=== PATIENT | male | born 1945 | race Caucasian/White ===

== ENCOUNTER 2016-12-06 06:03 | Day surgery (SDC) | payer MEDICARE ==
[2016-12-06 06:30] VITALS: BMI 22.1
[2016-12-06] MEDS ORDERED: Lactated Ringer's 1,000 ML IV ONE (08:01)
[2016-12-06] MEDS ORDERED: Lidocaine Hydrochloride 5 ML INJ ONE (08:05)
[2016-12-06] MEDS ORDERED: Propofol 10 mg/ml Inj (20 ML) ONE (08:05)
[2016-12-06] MEDS ORDERED: Atropine Sulfate 0.4 mg/ml (0.8mg/2ml) Syringe IV ONE (08:07)
[2016-12-06] MEDS ORDERED: Lidocaine 4% (Laryng-O-Jet) Kit MM ONE (08:10)
[2016-12-06 08:15] VITALS: O2SAT 100
[2016-12-06] MEDS ORDERED: Lactated Ringer's 500 ML IV SCH (08:30)
[2016-12-06 09:01] VITALS: TEMP 97
[2016-12-06 09:26] LABS: CHLORIDE 103 mmol/L (98-107); POTASSIUM 4.3 mmol/L (3.6-5.2); SODIUM 135 mmol/L (132-148)
[2016-12-06 09:29] LABS: BLOOD UREA NITROGEN 22 mg/dL (9-20); CALCIUM 8.5 mg/dl (8.6-10.4); CARBON DIOXIDE 25 mmol/L (22-30); GFR AFRICAN-AMERICAN > 60; GLUCOSE,RANDOM 76 mg/dL (75-110)
[2016-12-06 10:03] VITALS: BP 118/56; PULSE 50; RESP 15
== END 2016-12-06 09:49 | disposition home or self-care (01) ==
LOC: C.ENDO 06:03
PROVIDERS: ATTEND Internal Medicine Gastroenterology
DX: C15.4 Malignant neoplasm of middle third of esophagus (principal); K29.50 Unspecified chronic gastritis without bleeding; I10 Essential (primary) hypertension; E78.5 Hyperlipidemia, unspecified

== ENCOUNTER 2017-01-11 07:06 | Day surgery (SDC) | payer MEDICARE ==
[2017-01-02 10:36] VITALS: BMI 21.3
[2017-01-11] MEDS ORDERED: Bupivacaine HCl 0.25% PF (10 ml) Inj ONE ×2 (10:01)
[2017-01-11] MEDS ORDERED: HEPARIN-NS 5,000 UNITS/500 ML 5,000 UNIT/500 ML BAG IV ONE (10:19)
[2017-01-11] MEDS ORDERED: Lactated Ringer's 1,000 ML IV ONE ×2 (10:34)
[2017-01-11] MEDS: ceFAZolin IV 1 gm in Dextrose 0 GM/0 ML BAG IVPB ONE ×2 (10:35→11:10)
[2017-01-11] MEDS ORDERED: ceFAZolin IV 2 gm in Dextrose 2 GM/50 ML BAG IVPB ONE (10:57)
[2017-01-11] MEDS ORDERED: Propofol 10 mg/ml Inj (20 ML) ONE (11:03)
[2017-01-11] MEDS ORDERED: Midazolam 2 MG/2 ML VIAL ONE (11:03)
[2017-01-11] MEDS ORDERED: Succinylcholine Chloride 20 mg/ml Syr (5 ml) IV ONE (11:12)
[2017-01-11] MEDS: Bupivacaine-Epi 0.25%-1:200,000 PF Inj ONE ×2 (11:22→11:46)
[2017-01-11] MEDS: Lidocaine 1% Inj (20ml) ONE ×2 (11:23→11:46)
[2017-01-11] MEDS: Sodium Chloride 0.9% 20 ML IV ONE ×2 (11:43→12:22)
[2017-01-11] MEDS ORDERED: HYDROmorphone 0.5 mg/0.5 ml ISec IVP PRN (12:13)
[2017-01-11] MEDS ORDERED: Oxycodone/Acetaminophen 5/325 mg Tab PO PRN (12:47)
--- NOTE | 2017-01-11 12:53 | PCM.SURG1 ---
Surgeon's Initial Post Op Note - Surgeon's Notes Surgeon: Dr. Echols Development Administrator: Shefali Philippe, PGY1 Type of Anesthesia: General IV Pre-Operative Diagnosis: esophageal cancer needing portacath insertion Operative Findings: same Post-Operative Diagnosis: same Operation Performed: portacath insertion at Right IJ Specimen/Specimens Removed: none Estimated Blood Loss: EBL {In ML}: 10 Blood Products Given: N/A Drains Used: No Drains Post-Op Condition: Fair Date of Surgery/Procedure: 01/11/17 Time of Surgery/Procedure: 11:35
[2017-01-11] MEDS ORDERED: Oxycodone/Acetaminophen 5/325 mg Tab PEG PRN (13:27)
[2017-01-11] MEDS ORDERED: Lactated Ringer's 500 ML IV ONE (13:45)
--- NOTE | 2017-01-11 13:57 | RAD ---
PROCEDURE: CHEST RADIOGRAPH, 1 VIEW HISTORY: portacath insertion COMPARISON: Chest from right rib series 5216. FINDINGS: LUNGS: Right-sided life port catheter is in place with tip of the catheter terminating at the distal superior vena cava. Fibrotic changes are again seen the right suprahilar lung versus elevated minor fissure. No alveolitis. PLEURA: No pneumothorax or pleural fluid seen. CARDIOVASCULAR: Normal. OSSEOUS STRUCTURES: No significant abnormalities. VISUALIZED UPPER ABDOMEN: Normal. OTHER FINDINGS: None. IMPRESSION: Status post right life port catheter insertion. No pneumothorax identified. No infiltrate bilaterally.
[2017-01-11 14:27] VITALS: BP 107/56; PULSE 56; RESP 18; TEMP 97; O2SAT 97
--- NOTE | 2017-01-11 23:39 | OP ---
PROCEDURE DATE: 01/11/2017 PREOPERATIVE DIAGNOSIS: Esophageal cancer. POSTOPERATIVE DIAGNOSIS: Esophageal cancer. PROCEDURE DONE: 1. Right IJ double-lumen Port-A-Cath insertion. 2. Intraoperative fluoroscopy. 3. Ultrasound-guided venous access. SURGEON: Jeffrey Echols MD RACQUET MAKER: Shefali, PGY-1, resident. TYPE OF ANESTHESIA: General endotracheal tube anesthesia. ESTIMATED BLOOD LOSS: Around 10 mL. DRAINS: None. PATHOLOGY: None. COMPLICATIONS: None. INTRAOPERATIVE FINDINGS: The patient had patent right IJ and on intraoperative steps. DESCRIPTION OF PROCEDURE: This 71-year-old male who was diagnosed with esophageal cancer and the patient needed a Port-A-Cath insertion. The patient was consented for Port-A-Cath insertion, brought to the OR, placed on an operating table. After induction of anesthesia, the patient was placed in a beach chair position and neck was prepped and draped in usual sterile fashion, and under ultrasound guidance, right IJ venous access was done. The guidewire was placed and the right infraclavicular pouch was created. The catheter was passed through the dilator sheath and the catheter was connected to the double-lumen port. Port was secured to the floor of the pouch and the wound was closed in 2 layer. The port was accessed intraoperatively and it was working fine. The intraoperative fluoroscopy confirmation was done. The wound was dressed in sterile method and dry sterile dressing was applied. The patient tolerated the procedure well. The patient was extubated from the OR, sent to the postanesthesia care unit in stable condition. Jeffrey Echols MD
--- NOTE | 2017-01-12 07:55 | RAD ---
PROCEDURE: Intraoperative Fluoroscopy. HISTORY: Esophageal cancer FINDINGS: Fluoroscopic assistance was provided for right sided Port-A-Cath placement.. Please refer to the operative report from
== END 2017-01-11 14:48 | disposition home or self-care (01) ==
LOC: C.SDS 07:06
PROVIDERS: ATTEND Surgery Surgical Critical Care
DX: C15.9 Malignant neoplasm of esophagus, unspecified (principal)
CPT/HCPCS: 36561; 71010; 77001; J2250; J2704; J3010; J7120

== ENCOUNTER 2017-03-12 14:07 | Inpatient (IN) | payer MEDICARE ==
[2017-03-12 14:30] VITALS: BMI 19.2
[2017-03-12] MEDS ORDERED: Sodium Chloride 0.9% 500 ML IV ONE ×3 (15:34→18:59)
[2017-03-12 15:58] LABS: BASO # 0.1 K/uL (0.0-0.2); BASO % 1.2 % (0.0-2.0); EOS % 0.5 % (0.0-4.0); HEMOGLOBIN 11.1 g/dL (12.0-18.0); LYMPH # 0.6 K/uL (1.0-4.3); LYMPH % 9.6 % (20.0-40.0); MEAN CELL VOLUME 86.8 fL (80.0-94.0); MEAN CORPUSCULAR HEMOGLOBIN 29.2 pg (27.0-31.0); MEAN CORPUSCULAR HGB CONC 33.6 g/dL (33.0-37.0); MEAN PLATELET VOLUME 7.9 fL (7.2-11.7); MONO # 0.6 K/uL (0.0-0.8); MONO % 8.5 % (0.0-10.0); NEUT # 5.3 K/uL (1.8-7.0); NEUT % 80.2 % (50.0-75.0); PLATELET COUNT 331 K/uL (130-400); RED CELL DISTRIBUTION WIDTH 15.3 % (11.5-14.5); WHITE BLOOD COUNT 6.6 K/uL (4.8-10.8)
--- NOTE | 2017-03-12 16:00 | C.PDOC ---
History Of Present Illness 71 year old male with PMHx of esophageal cancer is sent to the ED by his PMD Dr. Olmos for evaluation of weakness. Patient's daughter reports patient had radiation and chemotherapy for his esophageal cancer, she started radiation on December and the last session was 2 weeks ago when the symptoms started. Patient is currently c/o severe weakness along with nausea, vomit, diarrhea patient has trouble getting up because he gets dizzy and his currently using a cane to walk. Patient denies blood in the stool, dysuria, hematuria, headache, numbness, abdominal pain, CP, SOB. Time Seen by Provider: 03/12/17 15:06 Chief Complaint (Nursing): Weakness/Neurological Deficit History Per: Patient History/Exam Limitations: no limitations Onset/Duration Of Symptoms: Days Current Symptoms Are (Timing): Still Present Associated Symptoms Preceding Syncopal Episode: No Predromal Symptoms (Sudden Onset) Seizure Or Post-ictal Symptoms: None Fall Associated With With Symptoms: No Severity: Mild Recent travel outside of the [place]: No Additional History Per: Patient Past Medical History Reviewed: Historical Data, Nursing Documentation, Vital Signs Vital Signs: Last Vital Signs Temp 97.9 F 03/12/17 21:40 Pulse 59 L 03/12/17 21:48 Resp 16 03/12/17 21:40 BP 98/52 L 03/12/17 21:40 Pulse Ox 100 03/12/17 21:40 - Medical History PMH: HTN Denies: Chronic Kidney Disease Other PMH: esophageal cancer Surgical History: Endoscopy Family History: States: Unknown Family Hx - Social History Hx Alcohol Use: No Hx Substance Use: No - Immunization History Hx Tetanus Toxoid Vaccination: No Hx Influenza Vaccination: No Hx Pneumococcal Vaccination: No Review Of Systems Constitutional: Positive for: Weakness. Negative for: Fever, Chills Cardiovascular: Negative for: Chest Pain, Palpitations Respiratory: Negative for: Cough, Shortness of Breath Gastrointestinal: Positive for: Vomiting, Diarrhea. Negative for: Nausea, Abdominal Pain Genitourinary: Negative for: Dysuria, Hematuria Skin: Negative for: Rash Neurological: Positive for: Weakness, Dizziness. Negative for: Numbness, Headache Physical Exam - Physical Exam Appears: Non-toxic, No Acute Distress Skin: Normal Color, Warm, Dry Head: Atraumatic, Normacephalic Eye(s): bilateral: Normal Inspection Nose: No Discharge, No Deformity Oral Mucosa: Moist Neck: Normal ROM, Supple Chest: Symmetrical Cardiovascular: Rhythm Regular, No Murmur Respiratory: Normal Breath Sounds, No Rales, No Rhonchi, No Wheezing Gastrointestinal/Abdominal: Soft, No Tenderness, No Guarding, No Rebound, Other (G tube in place, appears clean, area around it no erythema ) Rectal: Heme Positive, Maroon Stool, Blood Streaked Stool, No Hemorrhoids, Mass Extremity: Normal ROM, No Pedal Edema, No Calf Tenderness, No Deformity, No Swelling Neurological/Psych: Oriented x3, Normal Speech, Normal Cognition Gait: Steady ED Course And Treatment - Laboratory Results Result Diagrams: 03/12/17 15:54 03/12/17 15:54 ECG: Interpreted By Me, Viewed By Me ECG Rhythm: Sinus Rhythm ECG Interpretation: Normal Interpretation Of ECG: Normal intervals, normal axis, no ST or T wave abnormalities Rate From EC O2 Sat by Pulse Oximetry: 99 (On RA) Pulse Ox Interpretation: Normal - Radiology CXR: Viewed By Me, Read By Radiologist CXR Interpretation: Yes: Other (No stable position of right Port-A-Cath. Fibrotic changes in the right upper lobe. No active pulmonary disease) Medical Decision Making Medical Decision Making: Impression : generalized weakness Plan: * EKG * Labs * CXR * Protonix 40 mg IVP * IV fluids * Blood culture * Urine culture * UA Spoke with Hospitalist Dr. Das for admission, patient will be admitted to telemetry for weakness and hemoccult positive stool. Disposition Discussed With : Chata Das Doctor Will See Patient In The: Hospital Counseled Patient/Family Regarding: Studies Performed, Diagnosis - Disposition Disposition: HOSPITALIZED Disposition Time: 16:55 Condition: FAIR - Clinical Impression Clinical Impression: Weakness, Guaiac + stool - Scribe Statement The provider has reviewed the documentation as recorded by the Scribe Corey Reeves All medical record entries made by the Scribe were at my direction and personally dictated by me. I have reviewed the chart and agree that the record accurately reflects my personal performance of the history, physical exam, medical decision making, and the department course for this patient. I have also personally directed, reviewed, and agree with the discharge instructions and disposition.
--- NOTE | 2017-03-12 16:04 | RAD ---
PROCEDURE: CHEST RADIOGRAPH, 1 VIEW HISTORY: Chest pain COMPARISON: 06/27/2015. FINDINGS: The right MediPort terminates at the cavoatrial junction LUNGS: The lungs are well inflated. There are fibrotic changes in the right upper lobe. No focal consolidation PLEURA: No pneumothorax or pleural fluid seen. CARDIOVASCULAR: Normal. OSSEOUS STRUCTURES: No significant abnormalities. VISUALIZED UPPER ABDOMEN: Normal. OTHER FINDINGS: None. IMPRESSION: No stable position of right Port-A-Cath. Fibrotic changes in the right upper lobe. No active pulmonary disease.
[2017-03-12 16:10] LABS: ALBUMIN 3.5 g/dL (3.5-5.0); ALT/SGPT 31 U/L (21-72); AST/SGOT 25 U/L (17-59); BLOOD UREA NITROGEN 23 mg/dL (9-20); CALCIUM 8.3 mg/dl (8.6-10.4); GFR AFRICAN-AMERICAN > 60; GFR NON-AFRICAN AMERICAN > 60; LIPASE 60 U/L (23-300); MAGNESIUM 1.6 mg/dL (1.6-2.3)
[2017-03-12 16:15] LABS: INR 1.2; PROTHROMBIN TIME 13.2 SECONDS (9.7-12.2)
[2017-03-12 16:17] LABS: SQUAMOUS EPITHIAL 1 /hpf (0-5); URINE BACTERIA RARE (<OCC); URINE BILIRUBIN NEGATIVE (NEGATIVE); URINE BLOOD NEGATIVE (NEGATIVE); URINE CLARITY Clear (Clear); URINE COLOR Amber (YELLOW); URINE GLUCOSE (UA) NORMAL (Normal); URINE LEUKOCYTE ESTERASE NEG Leu/uL (Negative); URINE NITRATE NEGATIVE (NEGATIVE); URINE PROTEIN 1+ mg/dL (NEGATIVE)
[2017-03-12 16:27] LABS: BANDS 4 % (0-2); BASOPHIL 1 % (0-2); EOSINOPHIL 1 % (0-4); LYMPHOCYTE 10 % (20-40); MONOCYTE 6 % (0-10); NEUTROPHIL 78 % (50-75); PLATELET ESTIMATE NORMAL (NORMAL); TOTAL CELLS COUNTED 100
[2017-03-12 16:28] LABS: LARGE PLATELETS PRESENT; MICROCYTOSIS SLIGHT; OVALOCYTES SLIGHT
--- NOTE | 2017-03-12 19:13 | CP.PCM.HP ---
<Mitzi Salinas - Last Filed: 03/12/17 19:10> History of Present Illness - History of Present Illness History of Present Illness: CC: weakness, blood in stool HPI: Patient is a 71 year old male with a past medical history of esophageal cancer, stage II, and arthritis, who was sent by his pmd for weakness and blood in stool. Patient's friend, Heather, was at bedside and contributed to the patient 's history. Patient has been feeling weak for the past two weeks since his last session of chemo and radiation. He states he has been constipated and straining for the past 3 days and noticed blood streaking, but since this morning, he noticed a larger amount of blood in the toilet. He also complains of nausea, vomiting, and diarrhea starting this morning. As per the friend, the patient has been feeling weak ever since starting his tube feeding in November. The patient is supposed to use 6 bottles of ensure daily, but sometimes uses only 1- 2 bottles. He takes nothing by mouth. The patient was diagnosed with esophageal cancer, had the PEG tube and portacath placed, and started chemotherapy and radiation in November 2016. He gets chemo weekly, and radiation daily; as per the patient, he was supposed to finish radiation next week. Due to the patient' s symptoms of weakness, the patient has not had chemo or radiation for two weeks. Patient currently reports feeling weak, sore throat, dizzy, nausea, vomiting (earlier) and diarrhea. He also complains of tenderness around the PEG tube site with movement or bending down. PMD: Dr. Olmos Onc: Dr. 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 Present on Admission - Present on Admission Any Indicators Present on Admission: No Review of Systems - Constitutional Constitutional: Lethargy, Weight Loss, Weakness. absent: Headache - EENT Eyes: absent: Change in Vision Ears: Dizziness Nose/Mouth/Throat: Sore Throat - Cardiovascular Cardiovascular: absent: Chest Pain, Dyspnea - Respiratory Respiratory: absent: Cough, Dyspnea - Gastrointestinal Gastrointestinal: Diarrhea, Nausea, Vomiting. absent: Abdominal Pain, Hematemesis - Genitourinary Genitourinary: absent: Dysuria, Hematuria, Urinary Frequency - Neurological Neurological: Dizziness, Headaches, Weakness - Endocrine Endocrine: absent: Palpitations Past Patient History - Past Medical History & Family History Past Medical History?: Yes - Past Social History Smoking Status: Former Smoker - CARDIAC Hx Hypertension: Yes - PULMONARY Hx Respiratory Disorders: No - NEUROLOGICAL Hx Neurological Disorder: No - HEENT Hx HEENT Problems: No - RENAL Hx Chronic Kidney Disease: No - ENDOCRINE/METABOLIC Hx Endocrine Disorders: No - HEMATOLOGICAL/ONCOLOGICAL Hx Blood Disorders: Yes Hx Cancer: Yes (Esophagus) Other/Comment: ESOPHAGEAL CA, DYSPHAGIA, DYSPEPSIA - INTEGUMENTARY Hx Dermatological Problems: No - MUSCULOSKELETAL/RHEUMATOLOGICAL Hx Musculoskeletal Disorders: Yes (VITAMIN D DEFICIENCY) Hx Back Pain: Yes Hx Osteoarthritis: Yes - GASTROINTESTINAL Hx Gastrointestinal Disorders: Yes HX Swallowing Problems: Yes Other/Comment: DYSPEPSIA, ESOPHAGEAL CA - GENITOURINARY/GYNECOLOGICAL Hx Genitourinary Disorders: Yes (ERECTILE DYSFUNCTION) - PSYCHIATRIC Hx Substance Use: No - SURGICAL HISTORY Hx Surgeries: Yes Other/Comment: Peg placement to be done 01/03/2017 - ANESTHESIA Hx Anesthesia: Yes Hx Anesthesia Reactions: No Hx Malignant Hyperthermia: No Meds Allergies/Adverse Reactions: Allergies Allergy/AdvReac Type Severity Reaction Status Date / Time No Known Allergies Allergy Verified 03/12/17 14:30 Physical Exam - Constitutional Appears: No Acute Distress, Cachectic, Chronically Ill - Head Exam Head Exam: ATRAUMATIC, NORMAL INSPECTION - Eye Exam Eye Exam: EOMI - ENT Exam ENT Exam: Mucous Membranes Moist - Respiratory Exam Respiratory Exam: Clear to Auscultation Bilateral, NORMAL BREATHING PATTERN. absent: Rhonchi, Wheezes, Respiratory Distress - Cardiovascular Exam Cardiovascular Exam: REGULAR RHYTHM, +S1, +S2 - GI/Abdominal Exam GI & Abdominal Exam: Normal Bowel Sounds, Soft, Tenderness (around peg tube site ). absent: Distended, Firm - Extremities Exam Extremities exam: Positive for: pedal pulses present. Negative for: pedal edema , tenderness - Neurological Exam Neurological exam: Alert, Oriented x3 - Psychiatric Exam Psychiatric exam: Normal Affect, Normal Mood - Skin Skin Exam: Dry, Intact, Normal Color, Warm Results - Vital Signs Recent Vital Signs: Last Vital Signs Temp 98.3 F 03/12/17 18:03 Pulse 70 03/12/17 18:03 Resp 16 03/12/17 18:03 BP 103/63 03/12/17 18:03 Pulse Ox 97 03/12/17 18:03 - Labs Result Diagrams: 03/12/17 15:54 03/12/17 15:54 Labs: Laboratory Results - last 24 hr 03/12/17 03/12/17 03/12/17 15:54 15:54 15:54 WBC 6.6 RBC 3.80 L Hgb 11.1 L Hct 33.0 L MCV 86.8 MCH 29.2 MCHC 33.6 RDW 15.3 H Plt Count 331 D MPV 7.9 Neut % (Auto) 80.2 H Lymph % (Auto) 9.6 L Real % (Auto) 8.5 Eos % (Auto) 0.5 Baso % (Auto) 1.2 Neut # 5.3 Lymph # 0.6 L Real # 0.6 Eos # 0.0 Baso # 0.1 Neutrophils % (Manual) 78 H Band Neutrophils % 4 H Lymphocytes % (Manual) 10 L Monocytes % (Manual) 6 Eosinophils % (Manual) 1 Basophils % (Manual) 1 Platelet Estimate Normal Large Platelets Present Microcytosis (manual) Slight Ovalocytes Slight PT 13.2 H INR 1.2 APTT 30 Sodium 138 Potassium 3.9 Chloride 98 Carbon Dioxide 33 H Anion Gap 11 BUN 23 H Creatinine 0.6 L Est GFR ( Amer) > 60 Est GFR (Non-Af Amer) > 60 Random Glucose 100 Calcium 8.3 L Magnesium 1.6 Total Bilirubin 0.5 AST 25 ALT 31 Alkaline Phosphatase 63 Troponin I < 0.0120 Total Protein 7.0 Albumin 3.5 Globulin 3.5 Albumin/Globulin Ratio 1.0 Lipase 60 TSH 3rd Generation 1.01 Urine Color Urine Clarity Urine pH Ur Specific [place] Urine Protein Urine Glucose (UA) Urine Ketones Urine Blood Urine Nitrate Urine Bilirubin Urine Urobilinogen Ur Leukocyte Esterase Urine WBC (Auto) Urine RBC (Auto) Ur Squamous Epith Cells Ur Transition Epith Cell Urine Bacteria Influenza Typ A,B (EIA) Blood Type Antibody Screen 01/16/18 01/16/18 01/16/18 15:54 15:59 18:14 WBC RBC Hgb Hct MCV MCH MCHC RDW Plt Count MPV Neut % (Auto) Lymph % (Auto) Real % (Auto) Eos % (Auto) Baso % (Auto) Neut # Lymph # Real # Eos # Baso # Neutrophils % (Manual) Band Neutrophils % Lymphocytes % (Manual) Monocytes % (Manual) Eosinophils % (Manual) Basophils % (Manual) Platelet Estimate Large Platelets Microcytosis (manual) Ovalocytes PT INR APTT Sodium Potassium Chloride Carbon Dioxide Anion Gap BUN Creatinine Est GFR ( Amer) Est GFR (Non-Af Amer) Random Glucose Calcium Magnesium Total Bilirubin AST ALT Alkaline Phosphatase Troponin I Total Protein Albumin Globulin Albumin/Globulin Ratio Lipase TSH 3rd Generation Urine Color Rukhsana Urine Clarity Clear Urine pH 5.0 Ur Specific [place] 1.030 Urine Protein 1+ H Urine Glucose (UA) Normal Urine Ketones Negative Urine Blood Negative Urine Nitrate Negative Urine Bilirubin Negative Urine Urobilinogen 2.0 Ur Leukocyte Esterase Neg Urine WBC (Auto) 2 Urine RBC (Auto) 1 Ur Squamous Epith Cells 1 Ur Transition Epith Cell < 1 Urine Bacteria Rare Influenza Typ A,B (EIA) Negative for flu a/b Blood Type O POSITIVE Antibody Screen Negative Assessment & Plan (1) Weakness Assessment and Plan: possible etiology: * dehydration * malnutrition * on active chemo/radiation * possible GI bleed * hypotension Status: Acute (2) Dehydration Assessment and Plan: Started * NS 1liter bolus * NS@125mls/hr Status: Acute (3) Malnutrition Assessment and Plan: malnutrition, severe * c/w tube feedings * Mandarin Teacher referral * calorie count Status: Acute (4) GI bleed Assessment and Plan: GI consulted, Dr. [facility] (patient's GI before) * Stool occult positive (performed by ED physician) * Protonix 40mg IV Q12h * No chemical anticoagulation, nsaids, or asa * Repeat CBC: f/u results * Monitor H/H Status: Acute (5) Nausea & vomiting Assessment and Plan: Zofran 4mg IV Q6h PRN Status: Acute (6) Esophageal cancer Assessment and Plan: History of esophageal cancer, stage 2 * On active chemo/radiation * Oncology consulted, Dr Adrian Stein, help appreciated (patient see as outpatient) Status: Acute (7) Bandemia Assessment and Plan: Bandemia (4 at admission) * Afebrile, WBC within normal limits * Influenza: f/u results * Strep pneumo: f/u results * Mycoplasma: f/u results * Legionella: f/u result * Blood cx: f/u result * Urine cx: f/u result * Procalcitonin: f/u results * Started vanco 1gm IV daily (03/12/17) * Started zosyn 3.375gm IV Q6h (03/12/17) Status: Acute (8) Change in stool Assessment and Plan: Change in stool between constipation and diarrhea * Ova and parasite: f/u results * C. Diff: f/u results * Stool culture: f/u results * Stool leukocytes: f/u results Status: Acute (9) Prophylactic measure Assessment and Plan: * Protonix 40mg IV Q12h * Chemical anticoagulation contraindicated Status: Acute <Paige Amin V - Last Filed: 03/12/17 21:39> Results - Vital Signs Recent Vital Signs: Last Vital Signs Temp 97.9 F 03/12/17 20:33 Pulse 60 03/12/17 20:33 Resp 20 03/12/17 20:33 BP 91/50 L 03/12/17 20:33 Pulse Ox 99 03/12/17 20:33 - Labs Result Diagrams: 03/12/17 15:54 03/12/17 15:54 Labs: Laboratory Results - last 24 hr 03/12/17 03/12/17 03/12/17 15:54 15:54 15:54 WBC 6.6 RBC 3.80 L Hgb 11.1 L Hct 33.0 L MCV 86.8 MCH 29.2 MCHC 33.6 RDW 15.3 H Plt Count 331 D MPV 7.9 Neut % (Auto) 80.2 H Lymph % (Auto) 9.6 L Real % (Auto) 8.5 Eos % (Auto) 0.5 Baso % (Auto) 1.2 Neut # 5.3 Lymph # 0.6 L Real # 0.6 Eos # 0.0 Baso # 0.1 Neutrophils % (Manual) 78 H Band Neutrophils % 4 H Lymphocytes % (Manual) 10 L Monocytes % (Manual) 6 Eosinophils % (Manual) 1 Basophils % (Manual) 1 Platelet Estimate Normal Large Platelets Present Microcytosis (manual) Slight Ovalocytes Slight PT 13.2 H INR 1.2 APTT 30 Sodium 138 Potassium 3.9 Chloride 98 Carbon Dioxide 33 H Anion Gap 11 BUN 23 H Creatinine 0.6 L Est GFR ( Amer) > 60 Est GFR (Non-Af Amer) > 60 Random Glucose 100 Calcium 8.3 L Magnesium 1.6 Total Bilirubin 0.5 AST 25 ALT 31 Alkaline Phosphatase 63 Troponin I < 0.0120 Total Protein 7.0 Albumin 3.5 Globulin 3.5 Albumin/Globulin Ratio 1.0 Lipase 60 TSH 3rd Generation 1.01 Urine Color Urine Clarity Urine pH Ur Specific [place] Urine Protein Urine Glucose (UA) Urine Ketones Urine Blood Urine Nitrate Urine Bilirubin Urine Urobilinogen Ur Leukocyte Esterase Urine WBC (Auto) Urine RBC (Auto) Ur Squamous Epith Cells Ur Transition Epith Cell Urine Bacteria Influenza Typ A,B (EIA) Blood Type Antibody Screen 03/12/17 03/12/17 03/12/17 15:54 15:59 18:14 WBC RBC Hgb Hct MCV MCH MCHC RDW Plt Count MPV Neut % (Auto) Lymph % (Auto) Real % (Auto) Eos % (Auto) Baso % (Auto) Neut # Lymph # Real # Eos # Baso # Neutrophils % (Manual) Band Neutrophils % Lymphocytes % (Manual) Monocytes % (Manual) Eosinophils % (Manual) Basophils % (Manual) Platelet Estimate Large Platelets Microcytosis (manual) Ovalocytes PT INR APTT Sodium Potassium Chloride Carbon Dioxide Anion Gap BUN Creatinine Est GFR ( Amer) Est GFR (Non-Af Amer) Random Glucose Calcium Magnesium Total Bilirubin AST ALT Alkaline Phosphatase Troponin I Total Protein Albumin Globulin Albumin/Globulin Ratio Lipase TSH 3rd Generation Urine Color Rukhsana Urine Clarity Clear Urine pH 5.0 Ur Specific [place] 1.030 Urine Protein 1+ H Urine Glucose (UA) Normal Urine Ketones Negative Urine Blood Negative Urine Nitrate Negative Urine Bilirubin Negative Urine Urobilinogen 2.0 Ur Leukocyte Esterase Neg Urine WBC (Auto) 2 Urine RBC (Auto) 1 Ur Squamous Epith Cells 1 Ur Transition Epith Cell < 1 Urine Bacteria Rare Influenza Typ A,B (EIA) Negative for flu a/b Blood Type O POSITIVE Antibody Screen Negative Attending/Attestation - Attestation I have personally seen and examined this patient.: Yes I have fully participated in the care of the patient.: Yes I have reviewed all pertinent clinical information: Yes Notes (Text): Patient seen, examined, and case discussed with biomedical equipment tech. Discussed admitting orders with biomedical equipment tech. Assessment/Plan (1) Weakness Assessment and Plan: possible etiology: * dehydration * malnutrition * on active chemo/radiation * possible GI bleed * hypotension Status: Acute (2) Dehydration Assessment and Plan: Started * NS 1liter bolus * NS@125mls/hr Status: Acute (3) Malnutrition Assessment and Plan: malnutrition, severe * c/w tube feedings * [employer] Teacher referral * calorie count Status: Acute (4) GI bleed Assessment and Plan: GI consulted, Dr. [facility] (patient's GI before) * Stool occult positive (performed by ED physician) * Protonix 40mg IV Q12h * No chemical anticoagulation, nsaids, or asa * Repeat CBC: f/u results * Monitor H/H Status: Acute (5) Nausea & vomiting Assessment and Plan: Zofran 4mg IV Q6h PRN Status: Acute (6) Esophageal cancer Assessment and Plan: History of esophageal cancer, stage 2 * On active chemo/radiation * Oncology consulted, Dr Adrian Stein, help appreciated (patient see as outpatient) Status: Acute (7) Bandemia Assessment and Plan: Bandemia (4 at admission) * Afebrile, WBC within normal limits * Influenza: f/u results * Strep pneumo: f/u results * Mycoplasma: f/u results * Legionella: f/u result * Blood cx: f/u result * Urine cx: f/u result * Procalcitonin: f/u results * Started vanco 1gm IV daily (03/12/17) * Started zosyn 3.375gm IV Q6h (03/12/17) Status: Acute (8) Change in stool Assessment and Plan: Change in stool between constipation and diarrhea * Ova and parasite: f/u results * C. Diff: f/u results * Stool culture: f/u results * Stool leukocytes: f/u results Status: Acute (9) Prophylactic measure Assessment and Plan: * Protonix 40mg IV Q12h * Chemical anticoagulation contraindicated Status: Acute
[2017-03-12] MEDS ORDERED: Piperacillin/Tazobact 3.375 GM in Sodium Chloride 100 ML IVPB SCH (19:15)
[2017-03-12] MEDS ORDERED: Sodium Chloride 0.9% 1,000 ML ONE (19:24)
[2017-03-12] MEDS: Sodium Chloride 0.9% 1,000 ML IV SCH (20:35)
[2017-03-12] MEDS: Piperacill/Tazo 3.375gm in Dex 3.375 GM/50 ML BAG IVPB SCH (22:33)
[2017-03-12] MEDS: Vancomycin 1 gm/NS 200 ml 1 GM/200 ML BAG IVPB SCH (23:17)
[2017-03-13] MEDS: Piperacill/Tazo 3.375gm in Dex 3.375 GM/50 ML BAG IVPB SCH ×4 (02:50→19:45)
[2017-03-13] MEDS: Sodium Chloride 0.9% 1,000 ML IV SCH ×7 (03:45→21:07)
[2017-03-13] MEDS ORDERED: Sodium Chloride 0.9% 1,000 ML IV ONE ×2 (06:25→13:52)
[2017-03-13 07:39] LABS: BASO # 0.1 K/uL (0.0-0.2); BASO % 2.2 % (0.0-2.0); EOS # 0.1 K/uL (0.0-0.7); EOS % 1.9 % (0.0-4.0); LYMPH # 0.6 K/uL (1.0-4.3); LYMPH % 13.9 % (20.0-40.0); MEAN CELL VOLUME 86.7 fL (80.0-94.0); MEAN CORPUSCULAR HEMOGLOBIN 30.1 pg (27.0-31.0); MEAN CORPUSCULAR HGB CONC 34.7 g/dL (33.0-37.0); MEAN PLATELET VOLUME 8.6 fL (7.2-11.7); MONO # 0.6 K/uL (0.0-0.8); MONO % 12.9 % (0.0-10.0); NEUT % 69.1 % (50.0-75.0); NRBC % 0.1 % (0.0-2.0); RBC 2.9 Mil/uL (4.40-5.90); RED CELL DISTRIBUTION WIDTH 15.2 % (11.5-14.5); WHITE BLOOD COUNT 4.4 K/uL (4.8-10.8)
[2017-03-13 07:58] LABS: HEMOGLOBIN 8.7 g/dL (12.0-18.0)
[2017-03-13 08:14] LABS: ALB/GLOB RATIO 0.9 (1.0-2.1); ALBUMIN 2.5 g/dL (3.5-5.0); ALT/SGPT 24 U/L (21-72); AST/SGOT 18 U/L (17-59); BLOOD UREA NITROGEN 18 mg/dL (9-20); CALCIUM 7.5 mg/dl (8.6-10.4); GFR AFRICAN-AMERICAN > 60; GFR NON-AFRICAN AMERICAN > 60; MAGNESIUM 1.5 mg/dL (1.6-2.3)
--- NOTE | 2017-03-13 10:22 | CP.PCM.CON ---
<Magdalena Santiago - Last Filed: 03/13/17 13:29> History of Present Illness - History of Present Illness History of Present Illness: Gi consult note for Dr Flynn's service Reason for consult: BRBPR, Gi bleed, h/o esophageal cancer. Patient is a 71 y/o Male with PMHx stage 2 squamous esophageal cancer, ( on chemo radiation) s/p peg tube presenting with generalized weakness and bright red blood per rectum. Patient states since getting his feed tube placed in November of 2016, he has been feeling weak. Patient doesn't know whether he had lost weight or not. Patient states he was using 2 cans of ensure instead of 6 cans because he has to do it every 2 hours and it was taking too much time. Patient denies abdominal pain. States he strains while defecating, and is afraid of dislodging the peg tube. Patient is unable to quantify the number of times he has bowel movements weekly. But states for 3 days when he defecates he sees streaks of blood in the stool and when he wipes. Yesterday he decided to come to the ED, because the amount of blood in the stool has increased. Patient sees Dr Campbell for chemo, states he last saw him last week, he was told his chemo is suspended, but not sure if it was the last session. Patient also saw the radiation oncologist 2 weeks ago, and was suppose to go this week, but it was suspended as well. Last time patient took aspirin was 6 months ago. States since getting peg tube he hasn't been having any oral intake. Denies fever, chills, or nausea. Patient denies abdominal pain, feels pain around the peg area when pulled. Admits to 2 episodes of vomiting yesterday, the vomitus was ensure colored. Denies blood. PMHx: Stage 2 esophageal cancer located at the mid 3rd esophagus with 30% obstruction, s/p peg tube placement, OA. PSHx: Endoscopy 11/11 and peg tube placement 12-11, porth cath FMx: Mother- RA Social: tobacco- smoked 2ppd for 2 years, quit 15 yeas ago; ETOH- quit 3 years ago, would drink 2-6 packs on the weekend since 16 years old; denies illicit drug use. Home meds: denies Allergy: NKDA Review of Systems - Review of Systems All systems: reviewed and no additional remarkable complaints except Review of Systems: 12 point ROS reviewed all negative except as per HPI. Past Patient History - Tetanus Immunizations Tetanus Immunization: Unknown - Past Medical History & Family History Past Medical History?: Yes - Past Social History Smoking Status: Former Smoker Alcohol: Other (former) Drugs: Denies Home Situation {Lives}: With Family - CARDIAC Hx Hypertension: Yes - PULMONARY Hx Respiratory Disorders: No - NEUROLOGICAL Hx Neurological Disorder: No - HEENT Hx HEENT Problems: No - RENAL Hx Chronic Kidney Disease: No - ENDOCRINE/METABOLIC Hx Endocrine Disorders: No - HEMATOLOGICAL/ONCOLOGICAL Hx Blood Disorders: Yes Hx Cancer: Yes (Esophagus) Other/Comment: ESOPHAGEAL CA, DYSPHAGIA, DYSPEPSIA - INTEGUMENTARY Hx Dermatological Problems: No - MUSCULOSKELETAL/RHEUMATOLOGICAL Hx Musculoskeletal Disorders: Yes (VITAMIN D DEFICIENCY) Hx Back Pain: Yes Hx Falls: No Hx Osteoarthritis: Yes - GASTROINTESTINAL Hx Gastrointestinal Disorders: Yes HX Swallowing Problems: Yes Other/Comment: DYSPEPSIA, ESOPHAGEAL CA - GENITOURINARY/GYNECOLOGICAL Hx Genitourinary Disorders: Yes (ERECTILE DYSFUNCTION) - PSYCHIATRIC Hx Substance Use: No - SURGICAL HISTORY Hx Surgeries: Yes Other/Comment: Peg placement to be done 01/03/2017 - ANESTHESIA Hx Anesthesia: Yes Hx Anesthesia Reactions: No Hx Malignant Hyperthermia: No Meds Allergies/Adverse Reactions: Allergies Allergy/AdvReac Type Severity Reaction Status Date / Time No Known Allergies Allergy Verified 03/12/17 14:30 - Medications Medications: Current Medications Sodium Chloride (Sodium Chloride 0.9%) 1,000 mls @ 125 mls/hr IV .Q8H [facility] Last Admin: 03/13/17 09:10 Dose: 125 mls/hr Piperacillin Sod/Tazobactam Sod (Zosyn 3.375 Gm Iv Premix) 3.375 gm in 50 mls @ 100 mls/hr IVPB Q6H [facility] Last Admin: 03/13/17 02:50 Dose: 100 mls/hr Vancomycin/Sodium Chloride (Vancomycin 1 Gm/Ns 200 Ml) 1 gm in 200 mls @ 133 mls/hr IVPB Q24H [facility] Stop: 03/17/17 21:01 Last Admin: 03/12/17 23:17 Dose: 133 mls/hr Ondansetron HCl (Zofran Inj) 4 mg IVP Q6 PRN PRN Reason: Nausea/Vomiting Pantoprazole Sodium (Protonix Inj) 40 mg IVP Q12H [facility] Last Admin: 03/13/17 06:17 Dose: 40 mg Physical Exam - Constitutional Appears: No Acute Distress, Older Than Stated Age, Cachectic, Chronically Ill - Head Exam Head Exam: ATRAUMATIC, NORMAL INSPECTION, NORMOCEPHALIC - Eye Exam Eye Exam: EOMI, Normal appearance, PERRL. absent: Scleral icterus Pupil Exam: NORMAL ACCOMODATION - ENT Exam ENT Exam: Mucous Membranes Moist - Neck Exam Neck exam: Positive for: Normal Inspection. Negative for: Tenderness - Respiratory Exam Respiratory Exam: Clear to Auscultation Bilateral, NORMAL BREATHING PATTERN. absent: Rales, Rhonchi, Wheezes, Respiratory Distress, Stridor - Cardiovascular Exam Cardiovascular Exam: REGULAR RHYTHM, RRR, +S1, +S2. absent: Gallop, Irregular Rhythm, JVD, Rubs, Systolic Murmur - GI/Abdominal Exam GI & Abdominal Exam: Normal Bowel Sounds, Soft. absent: Distended, Firm, Guarding, Hernia, Rigid, Tenderness Additional comments: + peg tube in place, with crusted like debris, and surrounding skin irritation, no signs of infection. - Rectal Exam Rectal Exam: Hemorrhoids (1 closed, around the anal verge. ), NORMAL INSPECTION. absent: Black Stool, Bloody Stool, Fecal Impaction - Extremities Exam Extremities exam: Positive for: normal inspection. Negative for: pedal edema - Back Exam Back exam: NORMAL INSPECTION - Neurological Exam Neurological exam: Alert, Oriented x3 - Psychiatric Exam Psychiatric exam: Normal Affect, Normal Mood - Skin Skin Exam: Dry, Normal Color, Warm Results - Vital Signs Recent Vital Signs: Last Vital Signs Temp 98.0 F 03/13/17 07:15 Pulse 62 03/13/17 07:15 Resp 20 03/13/17 07:15 BP 80/47 L 03/13/17 07:15 Pulse Ox 100 03/13/17 07:15 - Labs Result Diagrams: 03/13/17 07:15 03/13/17 07:15 Labs: Laboratory Results - last 24 hr 03/12/17 03/12/17 03/12/17 15:54 15:54 15:54 WBC 6.6 RBC 3.80 L Hgb 11.1 L Hct 33.0 L MCV 86.8 MCH 29.2 MCHC 33.6 RDW 15.3 H Plt Count 331 D MPV 7.9 Neut % (Auto) 80.2 H Lymph % (Auto) 9.6 L Boundary % (Auto) 8.5 Eos % (Auto) 0.5 Baso % (Auto) 1.2 Neut # 5.3 Lymph # 0.6 L Boundary # 0.6 Eos # 0.0 Baso # 0.1 Neutrophils % (Manual) 78 H Band Neutrophils % 4 H Lymphocytes % (Manual) 10 L Monocytes % (Manual) 6 Eosinophils % (Manual) 1 Basophils % (Manual) 1 Platelet Estimate Normal Large Platelets Present Microcytosis (manual) Slight Ovalocytes Slight PT 13.2 H INR 1.2 APTT 30 Sodium 138 Potassium 3.9 Chloride 98 Carbon Dioxide 33 H Anion Gap 11 BUN 23 H Creatinine 0.6 L Est GFR ( Amer) > 60 Est GFR (Non-Af Amer) > 60 POC Glucose (mg/dL) Random Glucose 100 Calcium 8.3 L Phosphorus Magnesium 1.6 Total Bilirubin 0.5 AST 25 ALT 31 Alkaline Phosphatase 63 Troponin I < 0.0120 Total Protein 7.0 Albumin 3.5 Globulin 3.5 Albumin/Globulin Ratio 1.0 Lipase 60 Procalcitonin TSH 3rd Generation 1.01 Urine Color Urine Clarity Urine pH Ur Specific Hickman Urine Protein Urine Glucose (UA) Urine Ketones Urine Blood Urine Nitrate Urine Bilirubin Urine Urobilinogen Ur Leukocyte Esterase Urine WBC (Auto) Urine RBC (Auto) Ur Squamous Epith Cells Ur Transition Epith Cell Urine Bacteria Influenza Typ A,B (EIA) Blood Type Antibody Screen 03/12/17 03/12/17 03/12/17 15:54 15:59 17:08 WBC RBC Hgb Hct MCV MCH MCHC RDW Plt Count MPV Neut % (Auto) Lymph % (Auto) Boundary % (Auto) Eos % (Auto) Baso % (Auto) Neut # Lymph # Boundary # Eos # Baso # Neutrophils % (Manual) Band Neutrophils % Lymphocytes % (Manual) Monocytes % (Manual) Eosinophils % (Manual) Basophils % (Manual) Platelet Estimate Large Platelets Microcytosis (manual) Ovalocytes PT INR APTT Sodium Potassium Chloride Carbon Dioxide Anion Gap BUN Creatinine Est GFR ( Amer) Est GFR (Non-Af Amer) POC Glucose (mg/dL) Random Glucose Calcium Phosphorus Magnesium Total Bilirubin AST ALT Alkaline Phosphatase Troponin I Total Protein Albumin Globulin Albumin/Globulin Ratio Lipase Procalcitonin 0.07 L TSH 3rd Generation Urine Color Rukhsana Urine Clarity Clear Urine pH 5.0 Ur Specific Hickman 1.030 Urine Protein 1+ H Urine Glucose (UA) Normal Urine Ketones Negative Urine Blood Negative Urine Nitrate Negative Urine Bilirubin Negative Urine Urobilinogen 2.0 Ur Leukocyte Esterase Neg Urine WBC (Auto) 2 Urine RBC (Auto) 1 Ur Squamous Epith Cells 1 Ur Transition Epith Cell < 1 Urine Bacteria Rare Influenza Typ A,B (EIA) Blood Type O POSITIVE Antibody Screen Negative 03/12/17 03/13/17 03/13/17 18:14 06:22 07:15 WBC 4.4 L RBC 2.90 L Hgb 8.7 L D Hct 25.2 L MCV 86.7 MCH 30.1 MCHC 34.7 RDW 15.2 H Plt Count 262 MPV 8.6 Neut % (Auto) 69.1 Lymph % (Auto) 13.9 L Boundary % (Auto) 12.9 H Eos % (Auto) 1.9 Baso % (Auto) 2.2 H Neut # 3.0 Lymph # 0.6 L Boundary # 0.6 Eos # 0.1 Baso # 0.1 Neutrophils % (Manual) Band Neutrophils % Lymphocytes % (Manual) Monocytes % (Manual) Eosinophils % (Manual) Basophils % (Manual) Platelet Estimate Large Platelets Microcytosis (manual) Ovalocytes PT INR APTT Sodium Potassium Chloride Carbon Dioxide Anion Gap BUN Creatinine Est GFR ( Amer) Est GFR (Non-Af Amer) POC Glucose (mg/dL) 91 Random Glucose Calcium Phosphorus Magnesium Total Bilirubin AST ALT Alkaline Phosphatase Troponin I Total Protein Albumin Globulin Albumin/Globulin Ratio Lipase Procalcitonin TSH 3rd Generation Urine Color Urine Clarity Urine pH Ur Specific Hickman Urine Protein Urine Glucose (UA) Urine Ketones Urine Blood Urine Nitrate Urine Bilirubin Urine Urobilinogen Ur Leukocyte Esterase Urine WBC (Auto) Urine RBC (Auto) Ur Squamous Epith Cells Ur Transition Epith Cell Urine Bacteria Influenza Typ A,B (EIA) Negative for flu a/b Blood Type Antibody Screen 03/13/17 07:15 WBC RBC Hgb Hct MCV MCH MCHC RDW Plt Count MPV Neut % (Auto) Lymph % (Auto) Boundary % (Auto) Eos % (Auto) Baso % (Auto) Neut # Lymph # Boundary # Eos # Baso # Neutrophils % (Manual) Band Neutrophils % Lymphocytes % (Manual) Monocytes % (Manual) Eosinophils % (Manual) Basophils % (Manual) Platelet Estimate Large Platelets Microcytosis (manual) Ovalocytes PT INR APTT Sodium 135 Potassium 3.3 L Chloride 105 Carbon Dioxide 28 Anion Gap 5 L BUN 18 Creatinine 0.7 L Est GFR ( Amer) > 60 Est GFR (Non-Af Amer) > 60 POC Glucose (mg/dL) Random Glucose 84 Calcium 7.5 L Phosphorus 2.8 Magnesium 1.5 L Total Bilirubin 0.6 AST 18 ALT 24 Alkaline Phosphatase 48 Troponin I Total Protein 5.2 L Albumin 2.5 L D Globulin 2.7 Albumin/Globulin Ratio 0.9 L Lipase Procalcitonin TSH 3rd Generation Urine Color Urine Clarity Urine pH Ur Specific Hickman Urine Protein Urine Glucose (UA) Urine Ketones Urine Blood Urine Nitrate Urine Bilirubin Urine Urobilinogen Ur Leukocyte Esterase Urine WBC (Auto) Urine RBC (Auto) Ur Squamous Epith Cells Ur Transition Epith Cell Urine Bacteria Influenza Typ A,B (EIA) Blood Type Antibody Screen Assessment & Plan - Assessment and Plan (Free Text) Assessment: Patient is a 71 y/o male with pmhx of stage 2 squamous mid 3rd esophageal cancer ( on chemo/radiation) s/p peg tube presenting with generalized weakness and bright red blood per rectum. 1) Generalized weakness likely due to malnutrition versus chemo side effect. 2) Episode of bright red blood per rectum likely to due internal hemorrhoids, less likely UGB, r/o AVM malformation/colon cancer/colitis 3) Hypotention likely due to dehydration 4) Episode of bandemia 5) Hypokalemia and hypomagnesemia 6) Anemia hgb dropped from 11.1 to 8.7- likely dilutional Plan: - For malnutrition, will continue peg tube feeding - [facility] referral and peg tube care and counseling - For bright red blood per rectum, no active bleeding noted. - Will start bowel regiment - Will follow up with oncologist - Fluid resuscitation and electrolytes repletion as per primary. - Chart review for prior colonoscopy Patient seen, examined and case discussed with Gi fellows and Dr Flynn. - Date & Time Date: 03/13/17 Time: 11:55 <Jagdish Flynn Y - Last Filed: 03/13/17 14:56> Meds - Medications Medications: Current Medications Piperacillin Sod/Tazobactam Sod (Zosyn 3.375 Gm Iv Premix) 3.375 gm in 50 mls @ 100 mls/hr IVPB Q6H [facility] Last Admin: 03/13/17 13:46 Dose: 100 mls/hr Vancomycin/Sodium Chloride (Vancomycin 1 Gm/Ns 200 Ml) 1 gm in 200 mls @ 133 mls/hr IVPB Q24H [facility] Stop: 03/17/17 21:01 Last Admin: 03/12/17 23:17 Dose: 133 mls/hr Magnesium Sulfate/Dextrose (Magnesium Sulfate 1 Gm/100 Ml D5w) 1 gm in 100 mls @ 100 mls/hr IVPB ONCE ONE Stop: 03/13/17 14:59 Last Admin: 03/13/17 14:46 Dose: 100 mls/hr Potassium Chloride (Potassium Chloride 20 Meq/100 Ml) 20 meq in 100 mls @ 50 mls/hr IVPB ONCE ONE Stop: 03/13/17 15:59 Sodium Chloride (Sodium Chloride 0.9%) 1,000 mls @ 1,000 mls/hr IV .Q1H [facility] Stop: 03/13/17 14:51 Last Admin: 03/13/17 14:31 Dose: 1,000 mls/hr Sodium Chloride (Sodium Chloride 0.9%) 1,000 mls @ 150 mls/hr IV .Q6H40M [facility] Ondansetron HCl (Zofran Inj) 4 mg IVP Q6 PRN PRN Reason: Nausea/Vomiting Pantoprazole Sodium (Protonix Inj) 40 mg IVP Q12H [facility] Last Admin: 03/13/17 06:17 Dose: 40 mg Polyethylene Glycol (Miralax) 17 gm PO DAILY [facility] Last Admin: 03/13/17 13:46 Dose: 17 gm Results - Vital Signs Recent Vital Signs: Last Vital Signs Temp 98.0 F 03/13/17 11:37 Pulse 57 L 03/13/17 11:37 Resp 18 03/13/17 11:37 BP 75/42 L 03/13/17 11:37 Pulse Ox 97 03/13/17 11:37 - Labs Result Diagrams: 03/13/17 07:15 03/13/17 07:15 Labs: Laboratory Results - last 24 hr 03/12/17 03/12/17 03/12/17 15:54 15:54 15:54 WBC 6.6 RBC 3.80 L Hgb 11.1 L Hct 33.0 L MCV 86.8 MCH 29.2 MCHC 33.6 RDW 15.3 H Plt Count 331 D MPV 7.9 Neut % (Auto) 80.2 H Lymph % (Auto) 9.6 L Boundary % (Auto) 8.5 Eos % (Auto) 0.5 Baso % (Auto) 1.2 Neut # 5.3 Lymph # 0.6 L Boundary # 0.6 Eos # 0.0 Baso # 0.1 Neutrophils % (Manual) 78 H Band Neutrophils % 4 H Lymphocytes % (Manual) 10 L Monocytes % (Manual) 6 Eosinophils % (Manual) 1 Basophils % (Manual) 1 Platelet Estimate Normal Large Platelets Present Microcytosis (manual) Slight Ovalocytes Slight PT 13.2 H INR 1.2 APTT 30 Sodium 138 Potassium 3.9 Chloride 98 Carbon Dioxide 33 H Anion Gap 11 BUN 23 H Creatinine 0.6 L Est GFR ( Amer) > 60 Est GFR (Non-Af Amer) > 60 POC Glucose (mg/dL) Random Glucose 100 Calcium 8.3 L Phosphorus Magnesium 1.6 Total Bilirubin 0.5 AST 25 ALT 31 Alkaline Phosphatase 63 Troponin I < 0.0120 Total Protein 7.0 Albumin 3.5 Globulin 3.5 Albumin/Globulin Ratio 1.0 Lipase 60 Procalcitonin TSH 3rd Generation 1.01 Urine Color Urine Clarity Urine pH Ur Specific Hickman Urine Protein Urine Glucose (UA) Urine Ketones Urine Blood Urine Nitrate Urine Bilirubin Urine Urobilinogen Ur Leukocyte Esterase Urine WBC (Auto) Urine RBC (Auto) Ur Squamous Epith Cells Ur Transition Epith Cell Urine Bacteria Influenza Typ A,B (EIA) Blood Type Antibody Screen 03/12/17 03/12/17 03/12/17 15:54 15:59 17:08 WBC RBC Hgb Hct MCV MCH MCHC RDW Plt Count MPV Neut % (Auto) Lymph % (Auto) Boundary % (Auto) Eos % (Auto) Baso % (Auto) Neut # Lymph # Boundary # Eos # Baso # Neutrophils % (Manual) Band Neutrophils % Lymphocytes % (Manual) Monocytes % (Manual) Eosinophils % (Manual) Basophils % (Manual) Platelet Estimate Large Platelets Microcytosis (manual) Ovalocytes PT INR APTT Sodium Potassium Chloride Carbon Dioxide Anion Gap BUN Creatinine Est GFR ( Amer) Est GFR (Non-Af Amer) POC Glucose (mg/dL) Random Glucose Calcium Phosphorus Magnesium Total Bilirubin AST ALT Alkaline Phosphatase Troponin I Total Protein Albumin Globulin Albumin/Globulin Ratio Lipase Procalcitonin 0.07 L TSH 3rd Generation Urine Color Rukhsana Urine Clarity Clear Urine pH 5.0 Ur Specific Hickman 1.030 Urine Protein 1+ H Urine Glucose (UA) Normal Urine Ketones Negative Urine Blood Negative Urine Nitrate Negative Urine Bilirubin Negative Urine Urobilinogen 2.0 Ur Leukocyte Esterase Neg Urine WBC (Auto) 2 Urine RBC (Auto) 1 Ur Squamous Epith Cells 1 Ur Transition Epith Cell < 1 Urine Bacteria Rare Influenza Typ A,B (EIA) Blood Type O POSITIVE Antibody Screen Negative 03/12/17 03/13/17 03/13/17 18:14 06:22 07:15 WBC 4.4 L RBC 2.90 L Hgb 8.7 L D Hct 25.2 L MCV 86.7 MCH 30.1 MCHC 34.7 RDW 15.2 H Plt Count 262 MPV 8.6 Neut % (Auto) 69.1 Lymph % (Auto) 13.9 L Boundary % (Auto) 12.9 H Eos % (Auto) 1.9 Baso % (Auto) 2.2 H Neut # 3.0 Lymph # 0.6 L Boundary # 0.6 Eos # 0.1 Baso # 0.1 Neutrophils % (Manual) Band Neutrophils % Lymphocytes % (Manual) Monocytes % (Manual) Eosinophils % (Manual) Basophils % (Manual) Platelet Estimate Large Platelets Microcytosis (manual) Ovalocytes PT INR APTT Sodium Potassium Chloride Carbon Dioxide Anion Gap BUN Creatinine Est GFR ( Amer) Est GFR (Non-Af Amer) POC Glucose (mg/dL) 91 Random Glucose Calcium Phosphorus Magnesium Total Bilirubin AST ALT Alkaline Phosphatase Troponin I Total Protein Albumin Globulin Albumin/Globulin Ratio Lipase Procalcitonin TSH 3rd Generation Urine Color Urine Clarity Urine pH Ur Specific Hickman Urine Protein Urine Glucose (UA) Urine Ketones Urine Blood Urine Nitrate Urine Bilirubin Urine Urobilinogen Ur Leukocyte Esterase Urine WBC (Auto) Urine RBC (Auto) Ur Squamous Epith Cells Ur Transition Epith Cell Urine Bacteria Influenza Typ A,B (EIA) Negative for flu a/b Blood Type Antibody Screen 03/13/17 07:15 WBC RBC Hgb Hct MCV MCH MCHC RDW Plt Count MPV Neut % (Auto) Lymph % (Auto) Boundary % (Auto) Eos % (Auto) Baso % (Auto) Neut # Lymph # Boundary # Eos # Baso # Neutrophils % (Manual) Band Neutrophils % Lymphocytes % (Manual) Monocytes % (Manual) Eosinophils % (Manual) Basophils % (Manual) Platelet Estimate Large Platelets Microcytosis (manual) Ovalocytes PT INR APTT Sodium 135 Potassium 3.3 L Chloride 105 Carbon Dioxide 28 Anion Gap 5 L BUN 18 Creatinine 0.7 L Est GFR ( Amer) > 60 Est GFR (Non-Af Amer) > 60 POC Glucose (mg/dL) Random Glucose 84 Calcium 7.5 L Phosphorus 2.8 Magnesium 1.5 L Total Bilirubin 0.6 AST 18 ALT 24 Alkaline Phosphatase 48 Troponin I Total Protein 5.2 L Albumin 2.5 L D Globulin 2.7 Albumin/Globulin Ratio 0.9 L Lipase Procalcitonin TSH 3rd Generation Urine Color Urine Clarity Urine pH Ur Specific Hickman Urine Protein Urine Glucose (UA) Urine Ketones Urine Blood Urine Nitrate Urine Bilirubin Urine Urobilinogen Ur Leukocyte Esterase Urine WBC (Auto) Urine RBC (Auto) Ur Squamous Epith Cells Ur Transition Epith Cell Urine Bacteria Influenza Typ A,B (EIA) Blood Type Antibody Screen Attending/Attestation - Attestation I have personally seen and examined this patient.: Yes I have fully participated in the care of the patient.: Yes I have reviewed all pertinent clinical information: Yes Notes (Text): 03/13/17 14:48 I have seen and examined patient with GI fellow and medical science liaison. Agree with above documentation with the following additions. In brief, this is a 71 year old male with history of esophageal squamous cell cancer currently on chemo /radiation therapy, dysphagia s/p PEG placement, who presents to hospital with progressive weakness for past 3 months. He reports not having enough nutritional intake and has only been using less than 50% of recommended daily caloric intake. He claims that the feeding process via the gastrostomy tube takes too long and therefore avoids the use of multiple cans of nutritional formula. He denies abdominal pain, nausea, vomiting, fever/chills. He does report ongoing weight loss but is not able to quantify amount. Additionally for the past 3 days he has noted blood in stool. He admits to straining during defecation. He reportedly had a colonoscopy 3 years ago which was normal as per patient. On arrival to hospital, patient found to be hypotensive and bradycardic. Additional physical examination: Abdomen: no palpable hepato/splenomegaly Esophageal squamous cell cancer on chemo/radiation therapy Dysphagia s/p PEG placement Malnourishment, weight loss Rectal bleeding - rectal exam performed today shows normal anal sphincter tone with presence of soft yellow stool in vault, no palpable lesions - Continue with tube feeding as tolerated, patient will require further education regarding optimal dose and timing of administration of enteric feeds - H/H stable, continue to monitor - Patient would certainly benefit from colonoscopy for further evaluation of rectal bleeding, though will defer for time being given current clinical state and absence of overt bleeding on examination - Follow up oncology recommendations - Continue with antibiotic therapy for time being, follow up blood culture results - Will continue to monitor patient clinical course
[2017-03-13] MEDS: POLYETHYLENE GLYCOL 3350 17 GM/Dose PACKET PO SCH (13:46)
[2017-03-13] MEDS ORDERED: Magnesium Sulfate 1 gm in D5W 1 GM/100 ML BAG IVPB ONE (14:00)
[2017-03-13 15:21] LABS: BASO # 0.1 K/uL (0.0-0.2); BASO % 2.5 % (0.0-2.0); EOS # 0.1 K/uL (0.0-0.7); HEMOGLOBIN 8.3 g/dL (12.0-18.0); LYMPH # 0.6 K/uL (1.0-4.3); LYMPH % 15.6 % (20.0-40.0); MEAN CELL VOLUME 86.6 fL (80.0-94.0); MEAN CORPUSCULAR HEMOGLOBIN 29.2 pg (27.0-31.0); MEAN CORPUSCULAR HGB CONC 33.7 g/dL (33.0-37.0); MEAN PLATELET VOLUME 8.4 fL (7.2-11.7); MONO # 0.5 K/uL (0.0-0.8); NEUT # 2.4 K/uL (1.8-7.0); NEUT % 65.9 % (50.0-75.0); RBC 2.83 Mil/uL (4.40-5.90); RED CELL DISTRIBUTION WIDTH 15.7 % (11.5-14.5); WHITE BLOOD COUNT 3.7 K/uL (4.8-10.8)
--- NOTE | 2017-03-13 20:17 | CP.PCM.PN ---
Subjective - Date & Time of Evaluation Date of Evaluation: 03/13/17 Time of Evaluation: 20:16 - Subjective Subjective: Medicine Progress Note for Dr. Amin's Service, Florentin Massey PGY1 Walking Dragline Operator Patient was seen and examined at bedside. Per nursing, there were no acute events overnight. The patient reports feeling better. The patient denies any fevers, chills, nausea, vomiting, headaches, syncopal episodes, abdominal pain, chest pain, shortness of breath, constipation ,diarrhea, or any other complaints. Objective - Vital Signs/Intake and Output Vital Signs (last 24 hours): Temp Pulse Resp BP Pulse Ox 98.6 F 60 18 87/51 L 97 03/13/17 15:00 03/13/17 15:00 03/13/17 15:00 03/13/17 15:00 03/13/17 15:00 - Medications Medications: Current Medications Docusate Sodium (Colace) 100 mg PO BID [facility] Last Admin: 03/13/17 17:20 Dose: 100 mg Piperacillin Sod/Tazobactam Sod (Zosyn 3.375 Gm Iv Premix) 3.375 gm in 50 mls @ 100 mls/hr IVPB Q6H [facility] Last Admin: 03/13/17 19:45 Dose: 100 mls/hr Vancomycin/Sodium Chloride (Vancomycin 1 Gm/Ns 200 Ml) 1 gm in 200 mls @ 133 mls/hr IVPB Q24H [facility] Stop: 03/17/17 21:01 Last Admin: 03/12/17 23:17 Dose: 133 mls/hr Sodium Chloride (Sodium Chloride 0.9%) 1,000 mls @ 150 mls/hr IV .Q6H40M [facility] Last Admin: 03/13/17 19:42 Dose: 150 mls/hr Ondansetron HCl (Zofran Inj) 4 mg IVP Q6 PRN PRN Reason: Nausea/Vomiting Pantoprazole Sodium (Protonix Inj) 40 mg IVP Q12H [facility] Last Admin: 03/13/17 19:00 Dose: 40 mg Polyethylene Glycol (Miralax) 17 gm PO DAILY [facility] Last Admin: 03/13/17 13:46 Dose: 17 gm - Labs Labs: 03/13/17 15:18 03/13/17 07:15 PT 13.2 SECONDS (9.7-12.2) H 03/12/17 15:54 INR 1.2 03/12/17 15:54 APTT 30 SECONDS (21-34) 03/12/17 15:54 - Head Exam Head Exam: ATRAUMATIC, NORMAL INSPECTION, NORMOCEPHALIC - Eye Exam Eye Exam: EOMI, Normal appearance, PERRL. absent: Periorbital tenderness Pupil Exam: NORMAL ACCOMODATION, PERRL. absent: Irregular, Mydriatic, Unequal - ENT Exam ENT Exam: Mucous Membranes Moist, Normal Exam, Normal Oropharynx - Neck Exam Neck Exam: absent: Lymphadenopathy, Thyromegaly - Respiratory Exam Respiratory Exam: Clear to Ausculation Bilateral, NORMAL BREATHING PATTERN. absent: Chest Wall Tenderness, Prolonged Expiratory Phase, Respiratory Distress - Cardiovascular Exam Cardiovascular Exam: REGULAR RHYTHM, +S1, +S2 - GI/Abdominal Exam GI & Abdominal Exam: Soft, Normal Bowel Sounds. absent: Rigid, Hyperactive Bowel Sounds - Back Exam Back Exam: NORMAL INSPECTION. absent: CVA tenderness (L), CVA tenderness (R), paraspinal tenderness - Neurological Exam Neurological Exam: Alert, Awake, CN II-XII Intact, Normal Gait, Oriented x3 - Psychiatric Exam Psychiatric exam: Normal Affect, Normal Mood. absent: Anxious, Depressed - Skin Skin Exam: Dry, Intact, Normal Color, Warm Assessment and Plan - Assessment and Plan (Free Text) Plan: (1) Weakness Assessment and Plan: possible etiology: * malnutrition * on active chemo/radiation * Likely a combination of malnutrition and chemo/radiation. Status: Acute (2) Dehydration Assessment and Plan: Started * Continue NS@125mls/hr Status: Acute (3) Malnutrition Assessment and Plan: malnutrition, severe * Tube feedings changes to Jevity 1.5 with a goal of 60 * Eddy Current Inspector referral appreciated * calorie count Status: Acute (4) GI bleed Assessment and Plan: GI consulted, Dr. Flynn's group (patient's GI before). Rec's appreciated. * Stool occult positive (performed by ED physician) * Continue Protonix 40mg IV Q12h * No chemical anticoagulation, nsaids, or asa Status: Acute (5) Nausea & vomiting Assessment and Plan: Continue Zofran 4mg IV Q6h PRN Status: Acute (6) Esophageal cancer Assessment and Plan: History of esophageal cancer, stage 2 * On active chemo/radiation * Oncology consulted, Dr Adrian Stein, help appreciated (patient see as outpatient) Status: Acute (7) Bandemia Assessment and Plan: Bandemia (4 at admission) * Afebrile, WBC within normal limits * Influenza negative * Strep pneumo: f/u results * Mycoplasma: f/u results * Legionella: f/u result * Blood cx(-) x 24 hours * Urine cx(-) * Continue vanco 1gm IV daily (03/12/17) * Continue zosyn 3.375gm IV Q6h (03/12/17) Status: Acute (8) Change in stool Assessment and Plan: Change in stool between constipation and diarrhea * Ova and parasite: f/u results * C. Diff: f/u results * Stool culture: f/u results * Stool leukocytes: f/u results Status: Acute (9) Electrolyte Imbalance Repleted. Will monitor with serial CMP's. (10) Prophylactic measure Assessment and Plan: * Protonix 40mg IV Q12h * Chemical anticoagulation contraindicated Status: Acute
[2017-03-13] MEDS: Vancomycin 1 gm/NS 200 ml 1 GM/200 ML BAG IVPB SCH (21:00)
[2017-03-14] MEDS: Piperacill/Tazo 3.375gm in Dex 3.375 GM/50 ML BAG IVPB SCH ×4 (01:05→21:00)
--- NOTE | 2017-03-14 01:21 | CON ---
DATE: LOCATION: Room #651 B. 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 HISTORY OF PRESENT ILLNESS: This is a 71-year-old gentleman, known to me from the office. He is a known case of esophageal cancer. He is having neoadjuvant chemotherapy with Taxol and carboplatin weekly with concomitant radiation therapy. The patient has received already 22 treatments from radiation and also received about 7 weekly treatments with Taxol and carboplatin. He has tolerated very well. The patient is losing weight. The patient has been multiple of times told to take enough of the Ensure, about 6 at least, a day. He has been told by the daughter and a friend and me every week. The patient continues to drink only 1 to 2 cans of the Ensure Plus a day, losing weight, now started feeling very weak, tired, no energy, some blood in the stool, so was brought to the emergency room and admitted. I am called on consult for further evaluation and suggestions. The patient has a PEG placement already. PAST MEDICAL HISTORY: Significant for carcinoma of the esophagus and arthritis. MEDICATIONS: The patient is on no regular medication that the patient takes at present time. Takes occasional Zofran. ALLERGY: NO KNOWN DRUG ALLERGY. SOCIAL HISTORY: Used to smoke, quit many years ago. No ethanol abuse. REVIEW OF SYSTEMS: Denies any headache, dizziness or blackout. No chest pain or abdominal pain. No nausea, vomiting, melena, hemoptysis or hematemesis. No dysuria or hematuria. PHYSICAL EXAMINATION: GENERAL: On examination, awake, alert, oriented, quiet, pleasant, looking much better since he started on feeding through the PEG and feeling much better, also more energy. VITAL SIGNS: Temperature 98, pulse 62, blood pressure 80/47, respirations 20. HEENT: Head normocephalic, atraumatic. Eyes: Conjunctivae pink. Sclerae white. Pupils reacting to light. Ear, nose and throat within normal limits. LUNGS: Bilaterally good air entry. Clear to auscultation and percussion. HEART: S1 and S2 regular. No gallop. No murmur. ABDOMEN: Soft, not distended, not tender. No hepatosplenomegaly. CENTRAL NERVOUS SYSTEM: No gross motor or sensory deficits. LYMPH NODE: No cervical, axillary or inguinal lymph nodes palpable. LABORATORY DATA: WBC 6600, hemoglobin 11.1, hematocrit 33, platelet count 331,000. GFR is more than 60. Liver function tests are normal. IMPRESSION: Squamous cell carcinoma of the esophagus. PLAN: Clinical status discussed at length with the patient. Also discussed with Dr. Amin and Dr. Flynn. The patient is feeling much better with the PEG feeding. Again, discussed with the patient how important it is to take the PEG feeding. Hopefully, the patient when goes home will do the PEG feeding. Discussed with . Right now the whole chemo and radiation therapy is on hold. Overall prognosis is guarded. Thank you for letting me participate in the care of this patient and I will follow up the patient with you. Berenice Stein MD cc: Finesse Olmos MD
[2017-03-14] MEDS: Sodium Chloride 0.9% 1,000 ML IV SCH ×3 (05:08→17:31)
--- NOTE | 2017-03-14 07:05 | CP.PCM.PN ---
<Magdalena Santiago - Last Filed: 03/14/17 08:21> Subjective - Date & Time of Evaluation Date of Evaluation: 03/14/17 Time of Evaluation: 06:50 - Subjective Subjective: GI progress note for Dr Flynn's service No acute events overnight. Patient states he feels better than when he came in, feeling much stronger. No bowel movement since yesterday. Denies abdominal pain , nausea, vomiting or diarrhea. No fevers or chills. States the peg tube site was cleaned by the nursing staff yesterday. Objective - Vital Signs/Intake and Output Vital Signs (last 24 hours): Temp Pulse Resp BP Pulse Ox 98.0 F 52 L 20 90/45 L 96 03/13/17 23:05 03/14/17 05:12 03/13/17 23:05 03/14/17 05:12 03/13/17 23:05 Intake and Output: 03/14/17 03/14/17 06:59 18:59 Intake Total 1150 Output Total 500 Balance 650 - Medications Medications: Current Medications Docusate Sodium (Colace) 100 mg PO BID [facility] Last Admin: 03/13/17 17:20 Dose: 100 mg Piperacillin Sod/Tazobactam Sod (Zosyn 3.375 Gm Iv Premix) 3.375 gm in 50 mls @ 100 mls/hr IVPB Q6H [facility] Last Admin: 03/14/17 01:05 Dose: 100 mls/hr Vancomycin/Sodium Chloride (Vancomycin 1 Gm/Ns 200 Ml) 1 gm in 200 mls @ 133 mls/hr IVPB Q24H [facility] Stop: 03/17/17 21:01 Last Admin: 03/13/17 21:00 Dose: 133 mls/hr Sodium Chloride (Sodium Chloride 0.9%) 1,000 mls @ 150 mls/hr IV .Q6H40M [facility] Last Admin: 03/14/17 05:08 Dose: 150 mls/hr Ondansetron HCl (Zofran Inj) 4 mg IVP Q6 PRN PRN Reason: Nausea/Vomiting Pantoprazole Sodium (Protonix Inj) 40 mg IVP Q12H [facility] Last Admin: 03/14/17 06:03 Dose: 40 mg Polyethylene Glycol (Miralax) 17 gm PO DAILY [facility] Last Admin: 03/13/17 13:46 Dose: 17 gm - Labs Labs: 03/13/17 15:18 03/13/17 07:15 PT 13.2 SECONDS (9.7-12.2) H 03/12/17 15:54 INR 1.2 03/12/17 15:54 APTT 30 SECONDS (21-34) 03/12/17 15:54 - Constitutional Appears: No Acute Distress, Cachectic, Chronically Ill - Head Exam Head Exam: ATRAUMATIC, NORMAL INSPECTION, NORMOCEPHALIC - Eye Exam Eye Exam: EOMI, Normal appearance, PERRL. absent: Scleral icterus Pupil Exam: NORMAL ACCOMODATION - ENT Exam ENT Exam: Mucous Membranes Moist - Neck Exam Neck Exam: Normal Inspection - Respiratory Exam Respiratory Exam: Clear to Ausculation Bilateral, NORMAL BREATHING PATTERN. absent: Rales, Rhonchi, Wheezes, Respiratory Distress, Stridor - Cardiovascular Exam Cardiovascular Exam: REGULAR RHYTHM, RRR, +S1, +S2. absent: Murmur - GI/Abdominal Exam GI & Abdominal Exam: Soft, Normal Bowel Sounds. absent: Distended, Firm, Guarding, Rigid, Tenderness Additional comments: + peg tube in place, with clean dressing, no surrounding erythema or edema. - Extremities Exam Extremities Exam: Normal Inspection. absent: Pedal Edema - Back Exam Back Exam: NORMAL INSPECTION - Neurological Exam Neurological Exam: Alert, Awake, Oriented x3 - Psychiatric Exam Psychiatric exam: Normal Affect, Normal Mood - Skin Skin Exam: Dry, Normal Color, Warm Assessment and Plan - Assessment and Plan (Free Text) Assessment: Patient is a 71 y/o male with pmhx of stage 2 squamous mid 3rd esophageal cancer ( on chemo/radiation) s/p peg tube presenting with generalized weakness and bright red blood per rectum. 1) Generalized weakness likely due to malnourishment 2) Rectal bleeding- resolved 3) Esophageal squamous cell cancer on chemo/radiation therapy 4) Dysphagia s/p PEG placement 5) Hypotention likely due to malnourishment, r/o cardiac or endocrinologic related Plan: - Continue tube feeding - Recommend tube feeding education - H/H stable, continue to monitor - Blood cultures with no growth, afebrile and no leukocytosis, consider deescalating antibiotics - Pepcid for gi prophylaxis. - Correct electrolytes, consider cardiac work up for persistent hypotension. - From GI stand point, no further interventions at this time, colonoscopy as outpatient once nutritionally optimized. - Patient to follow up with Dr Flynn in the office in 2 weeks. Patient seen, examined and case discussed with GI fellows and Dr Flynn. <Jagdish Flynn - Last Filed: 03/14/17 10:58> Objective - Vital Signs/Intake and Output Vital Signs (last 24 hours): Temp Pulse Resp BP Pulse Ox 97.1 F L 49 L 17 83/31 L 97 03/14/17 09:00 03/14/17 09:00 03/14/17 09:00 03/14/17 09:00 03/14/17 09:00 Intake and Output: 03/14/17 03/14/17 06:59 18:59 Intake Total 1150 Output Total 500 Balance 650 - Medications Medications: Current Medications Docusate Sodium (Colace) 100 mg PO BID [facility] Last Admin: 03/14/17 09:17 Dose: 100 mg Famotidine (Pepcid) 20 mg PEG BID [facility] Last Admin: 03/14/17 09:17 Dose: 20 mg Piperacillin Sod/Tazobactam Sod (Zosyn 3.375 Gm Iv Premix) 3.375 gm in 50 mls @ 100 mls/hr IVPB Q6H [facility] Last Admin: 03/14/17 07:49 Dose: 100 mls/hr Vancomycin/Sodium Chloride (Vancomycin 1 Gm/Ns 200 Ml) 1 gm in 200 mls @ 133 mls/hr IVPB Q24H [facility] Stop: 03/17/17 21:01 Last Admin: 03/13/17 21:00 Dose: 133 mls/hr Sodium Chloride (Sodium Chloride 0.9%) 1,000 mls @ 150 mls/hr IV .Q6H40M [facility] Last Admin: 03/14/17 05:08 Dose: 150 mls/hr Potassium Chloride (Potassium Chloride 20 Meq/100 Ml) 20 meq in 100 mls @ 50 mls/hr IVPB ONCE ONE Stop: 03/14/17 10:59 Ondansetron HCl (Zofran Inj) 4 mg IVP Q6 PRN PRN Reason: Nausea/Vomiting Polyethylene Glycol (Miralax) 17 gm PO DAILY [facility] Last Admin: 03/14/17 09:16 Dose: 17 gm - Labs Labs: 03/14/17 07:10 03/14/17 07:10 PT 13.2 SECONDS (9.7-12.2) H 03/12/17 15:54 INR 1.2 03/12/17 15:54 APTT 30 SECONDS (21-34) 03/12/17 15:54 Attending/Attestation - Attestation I have personally seen and examined this patient.: Yes I have fully participated in the care of the patient.: Yes I have reviewed all pertinent clinical information, including history, physical exam and plan: Yes Notes (Text): 03/14/17 10:55 I have seen and examined patient with GI fellow and medical surgical tech. No acute events overnight, he is seen resting in bed comfortably. He notes improvement in weakness and denies abdominal pain, nausea, vomiting, fever/chills. Tolerating PO diet without difficulty. Squamous cell esophageal cancer on chemo/radiation therapy Dysphagia, s/p PEG placement Weakness, weight loss Rectal bleeding - resolved - Continue with tube feeding as tolerated - Blood cultures remain negative, can likely discontinue antibiotic therapy - H/H stable, continue to monitor - Patient with ongoing hypotension despite fluid resuscitation and initiation of tube feeding, consider cardiology workup - Follow up oncology recommendations - Patient would benefit from elective outpatient colonoscopy following nutritional optimization and resolution of acute issues. No further planned GI intervention, will sign off case. Patient has follow up office appointment scheduled for March 28. Please reconsult as necessary, thank you.
[2017-03-14 07:22] LABS: BASO # 0.1 K/uL (0.0-0.2); BASO % 2.4 % (0.0-2.0); EOS # 0.1 K/uL (0.0-0.7); HEMOGLOBIN 9.1 g/dL (12.0-18.0); LYMPH # 0.6 K/uL (1.0-4.3); LYMPH % 18.3 % (20.0-40.0); MEAN CELL VOLUME 86.6 fL (80.0-94.0); MEAN CORPUSCULAR HEMOGLOBIN 30.2 pg (27.0-31.0); MEAN CORPUSCULAR HGB CONC 34.8 g/dL (33.0-37.0); MEAN PLATELET VOLUME 8.8 fL (7.2-11.7); MONO # 0.5 K/uL (0.0-0.8); MONO % 16.5 % (0.0-10.0); NEUT # 1.9 K/uL (1.8-7.0); NEUT % 60.8 % (50.0-75.0); NRBC % 0.1 % (0.0-2.0); RBC 3.02 Mil/uL (4.40-5.90); RED CELL DISTRIBUTION WIDTH 15.3 % (11.5-14.5); WHITE BLOOD COUNT 3.1 K/uL (4.8-10.8)
[2017-03-14 07:43] LABS: ALB/GLOB RATIO 0.9 (1.0-2.1); ALBUMIN 2.4 g/dL (3.5-5.0); ALT/SGPT 28 U/L (21-72); AST/SGOT 17 U/L (17-59); BLOOD UREA NITROGEN 11 mg/dL (9-20); CALCIUM 7.7 mg/dl (8.6-10.4); GFR AFRICAN-AMERICAN > 60; GFR NON-AFRICAN AMERICAN > 60
[2017-03-14] MEDS: POLYETHYLENE GLYCOL 3350 17 GM/Dose PACKET PO SCH (09:16)
[2017-03-14] MEDS ORDERED: Sodium Chloride 0.9% 1,000 ML IV ONE (09:50)
[2017-03-14 10:20] LABS: B-TYPE NATRIURETIC PEPTIDE 422 pg/mL (0-900)
[2017-03-14 10:24] LABS: MAGNESIUM 1.8 mg/dL (1.6-2.3)
--- NOTE | 2017-03-14 10:39 | CARD ---
APPROVED REPORT EKG Measurement Heart [id number] <Conclusion> Normal sinus rhythm Normal ECG
--- NOTE | 2017-03-14 11:45 | CP.PCM.PN ---
Subjective - Date & Time of Evaluation Date of Evaluation: 03/14/17 Time of Evaluation: 09:42 - Subjective Subjective: Medicine Progress Note for Dr. Amin's Service, Florentin Massey PGY1 Plate Shear Operator Patient was seen and examined at bedside. Per nursing, there were no acute events overnight. The patient reports feeling better. The The patient denies any chest pain, abdominal pain, fevers, chills, changes in vision, numbness or tingling in the hands or feet, headaches, nausea, vomiting, or any other complaints. Objective - Vital Signs/Intake and Output Vital Signs (last 24 hours): Temp Pulse Resp BP Pulse Ox 97.1 F L 49 L 17 83/31 L 97 03/14/17 09:00 03/14/17 09:00 03/14/17 09:00 03/14/17 09:00 03/14/17 09:00 Intake and Output: 03/14/17 03/14/17 06:59 18:59 Intake Total 1150 Output Total 500 Balance 650 - Medications Medications: Current Medications Docusate Sodium (Colace) 100 mg PO BID [facility] Last Admin: 03/14/17 09:17 Dose: 100 mg Famotidine (Pepcid) 20 mg PEG BID [facility] Last Admin: 03/14/17 09:17 Dose: 20 mg Piperacillin Sod/Tazobactam Sod (Zosyn 3.375 Gm Iv Premix) 3.375 gm in 50 mls @ 100 mls/hr IVPB Q6H [facility] Last Admin: 03/14/17 07:49 Dose: 100 mls/hr Vancomycin/Sodium Chloride (Vancomycin 1 Gm/Ns 200 Ml) 1 gm in 200 mls @ 133 mls/hr IVPB Q24H [facility] Stop: 03/17/17 21:01 Last Admin: 03/13/17 21:00 Dose: 133 mls/hr Sodium Chloride (Sodium Chloride 0.9%) 1,000 mls @ 150 mls/hr IV .Q6H40M [facility] Last Admin: 03/14/17 09:53 Dose: Not Given Ondansetron HCl (Zofran Inj) 4 mg IVP Q6 PRN PRN Reason: Nausea/Vomiting Polyethylene Glycol (Miralax) 17 gm PO DAILY [facility] Last Admin: 03/14/17 09:16 Dose: 17 gm - Labs Labs: 03/14/17 07:10 03/14/17 07:10 PT 13.2 SECONDS (9.7-12.2) H 03/12/17 15:54 INR 1.2 03/12/17 15:54 APTT 30 SECONDS (21-34) 03/12/17 15:54 - Head Exam Head Exam: ATRAUMATIC, NORMAL INSPECTION, NORMOCEPHALIC - Eye Exam Eye Exam: EOMI, Normal appearance, PERRL. absent: Periorbital tenderness Pupil Exam: NORMAL ACCOMODATION, PERRL - ENT Exam ENT Exam: Mucous Membranes Moist, Normal Exam, Normal Oropharynx - Neck Exam Neck Exam: Normal Inspection. absent: Lymphadenopathy, Thyromegaly - Respiratory Exam Respiratory Exam: Clear to Ausculation Bilateral, NORMAL BREATHING PATTERN. absent: Chest Wall Tenderness, Prolonged Expiratory Phase - Cardiovascular Exam Cardiovascular Exam: REGULAR RHYTHM, +S1, +S2. absent: Gallop, Rubs - GI/Abdominal Exam GI & Abdominal Exam: Soft, Normal Bowel Sounds. absent: Rigid, Hyperactive Bowel Sounds - Extremities Exam Extremities Exam: Full ROM. absent: Joint Swelling, Pedal Edema, Tenderness - Back Exam Back Exam: NORMAL INSPECTION. absent: CVA tenderness (R), paraspinal tenderness - Neurological Exam Neurological Exam: Alert, Awake, CN II-XII Intact, Normal Gait, Oriented x3 - Psychiatric Exam Psychiatric exam: Normal Affect, Normal Mood - Skin Skin Exam: Dry, Intact, Normal Color, Warm Assessment and Plan - Assessment and Plan (Free Text) Plan: (1) Weakness Assessment and Plan: possible etiology: * malnutrition * on active chemo/radiation * Likely a combination of malnutrition and chemo/radiation. Status: Acute (2) Hypotensive - YOLA negative -Fluid bolus given. Vitals improved afterwards. Will continue to monitor. (3) Dehydration Assessment and Plan: Started * Continue NS@125mls/hr Status: Acute (4) Malnutrition Assessment and Plan: malnutrition, severe * Tube feedings changes to Jevity 1.5. Increased to 30 cc/hr with a goal of 60. * Warehouse Team Leader referral appreciated * calorie count Status: Acute (5) GI bleed Assessment and Plan: GI consulted, Dr. Flynn's group (patient's GI before). Rec's appreciated. * Stool occult positive (performed by ED physician) * Continue Protonix 40mg IV Q12h * No chemical anticoagulation, nsaids, or asa Status: Acute (6) Nausea & vomiting Assessment and Plan: Continue Zofran 4mg IV Q6h PRN Status: Acute (7) Esophageal cancer Assessment and Plan: History of esophageal cancer, stage 2 * On active chemo/radiation * Oncology consulted, Dr Adrian Stein, help appreciated (patient see as outpatient) Status: Acute (8) Bandemia Assessment and Plan: Bandemia (4 at admission) * Afebrile, WBC within normal limits * Influenza negative * Strep pneumo: f/u results * Mycoplasma: f/u results * Legionella: f/u result * Blood cx(-) x 24 hours * Urine cx(-) * Continue vanco 1gm IV daily (03/12/17) * Continue zosyn 3.375gm IV Q6h (03/12/17) Status: Acute (9) Change in stool Assessment and Plan: Change in stool between constipation and diarrhea * Ova and parasite: f/u results * C. Diff: f/u results * Stool culture: f/u results * Stool leukocytes: f/u results Status: Acute (10) Electrolyte Imbalance Repleted. Will monitor with serial CMP's. (11) Prophylactic measure Assessment and Plan: * Protonix 40mg IV Q12h * Chemical anticoagulation contraindicated Status: Acute
[2017-03-14 12:16] LABS: CK-MB < 0.22 ng/mL (0.0-3.38)
--- NOTE | 2017-03-14 12:51 | CARD ---
APPROVED REPORT EXAM: Two-dimensional and M-mode echocardiogram with Doppler and color Doppler. Other Information Quality : GoodRhythm : INDICATION LV Function:SystolicDiastolic 2D DIMENSIONS IVSd1.2 (0.7-1.1cm)LVDd4.2 (3.9-5.9cm) PWd0.7 (0.7-1.1cm)LVDs2.9 (2.5-4.0cm) FS (%) 31.0 %LVEF (%)59.1 (>50%) M-Mode DIMENSIONS RVDd2.08 (2.1-3.2cm)Left Atrium (MM)3.45 (2.5-4.0cm) IVSd0.81 (0.7-1.1cm)Aortic Root2.98 (2.2-3.7cm) LVDd5.27 (4.0-5.6cm)Aortic Cusp Exc.2.24 (1.5-2.0cm) PWd0.81 (0.7-1.1cm)FS (%) 28 % LVDs3.81 (2.0-3.8cm)LVEF (%)53 (>50%) Aortic Valve AI P 1/2 [id number] Mitral Valve MV E Wwxootdp68.9cm/sMV A Eyifepyo94.8cm/sE/A ratio1.5 TDI E/Lateral E'0.0E/Medial E'0.0 Tricuspid Valve TR Peak [id number]/sTR Peak [id number] LEFT VENTRICLE The left ventricle is normal size. There is normal left ventricular wall thickness. The left ventricular function is normal. The left ventricular ejection fraction is within the normal range. There is normal LV segmental wall motion. The left ventricular diastolic function is normal. No left ventricle thrombus noted on this study. There is no ventricular septal defect visualized. There is no left ventricular aneurysm. There is no mass noted in the left ventricle. RIGHT VENTRICLE The right ventricle is normal size. There is normal right ventricular wall thickness. The right ventricular systolic function is normal. ATRIA The left atrium is mildly dilated. The right atrium is mildly dilated. The interatrial septum is intact with no evidence for an atrial septal defect. AORTIC VALVE The aortic valve is normal in structure. There is moderate aortic regurgitation. There is no aortic valvular stenosis. There is no aortic valvular vegetation. MITRAL VALVE The mitral valve is normal in structure. There is no mitral valve stenosis. There is no mitral valve regurgitation noted. TRICUSPID VALVE The tricuspid valve is normal in structure. There is no tricuspid valve regurgitation noted. PULMONIC VALVE The pulmonary valve is normal in structure. There is no pulmonic valvular regurgitation. GREAT VESSELS The aortic root is normal in size. The ascending aorta is normal in size. The pulmonary artery is normal. The IVC is normal in size and collapses >50% with inspiration. PERICARDIAL EFFUSION There is no pericardial effusion. <Conclusion> The left atrium is mildly dilated. The right atrium is mildly dilated. There is moderate aortic regurgitation. LVEF IS 60%.
[2017-03-14 15:43] VITALS: RESP 20
--- NOTE | 2017-03-14 20:34 | CP.PCM.CON ---
History of Present Illness - History of Present Illness History of Present Illness: CC: Hypotension HPI: Patient is a 71 year old male with a past medical history of esophageal cancer, stage II, and arthritis, who was sent by his pmd for weakness and blood in stool. Patient's friend, Heather, was at bedside and contributed to the patient 's history. Patient has been feeling weak for the past two weeks since his last session of chemo and radiation. He states he has been constipated and straining for the past 3 days and noticed blood streaking, but since this morning, he noticed a larger amount of blood in the toilet. He also complains of nausea, vomiting, and diarrhea starting this morning. As per the friend, the patient has been feeling weak ever since starting his tube feeding in November. The patient is supposed to use 6 bottles of ensure daily, but sometimes uses only 1- 2 bottles. He takes nothing by mouth. The patient was diagnosed with esophageal cancer, had the PEG tube and portacath placed, and started chemotherapy and radiation in November 2016. He gets chemo weekly, and radiation daily; as per the patient, he was supposed to finish radiation next week. Due to the patient' s symptoms of weakness, the patient has not had chemo or radiation for two weeks. Patient currently reports feeling weak, sore throat, dizzy, nausea, vomiting (earlier) and diarrhea. He also complains of tenderness around the PEG tube site with movement or bending down. PMD: Dr. Olmos Onc: Dr. 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 Present on Admission - Present on Admission Any Indicators Present on Admission: No Review of Systems - Constitutional Constitutional: Lethargy, Weight Loss, Weakness. absent: Headache - EENT Eyes: absent: Change in Vision Ears: Dizziness Nose/Mouth/Throat: Sore Throat - Cardiovascular Cardiovascular: absent: Chest Pain, Dyspnea - Respiratory Respiratory: absent: Cough, Dyspnea - Gastrointestinal Gastrointestinal: Diarrhea, Nausea, Vomiting. absent: Abdominal Pain, Hematemesis - Genitourinary Genitourinary: absent: Dysuria, Hematuria, Urinary Frequency - Neurological Neurological: Dizziness, Headaches, Weakness - Endocrine Endocrine: absent: Palpitations Meds Allergies/Adverse Reactions: Allergies Allergy/AdvReac Type Severity Reaction Status Date / Time No Known Allergies Allergy Verified 03/12/17 14:30 Physical Exam - Constitutional Appears: No Acute Distress, Cachectic, Chronically Ill - Head Exam Head Exam: ATRAUMATIC, NORMAL INSPECTION - Eye Exam Eye Exam: EOMI - ENT Exam ENT Exam: Mucous Membranes Moist - Respiratory Exam Respiratory Exam: Clear to Auscultation Bilateral, NORMAL BREATHING PATTERN. absent: Rhonchi, Wheezes, Respiratory Distress - Cardiovascular Exam Cardiovascular Exam: REGULAR RHYTHM, +S1, +S2 - GI/Abdominal Exam GI & Abdominal Exam: Normal Bowel Sounds, Soft, Tenderness (around peg tube site ). absent: Distended, Firm - Extremities Exam Extremities exam: Positive for: pedal pulses present. Negative for: pedal edema , tenderness - Neurological Exam Neurological exam: Alert, Oriented x3 - Psychiatric Exam Psychiatric exam: Normal Affect, Normal Mood - Skin Skin Exam: Dry, Intact, Normal Color, Warm Past Patient History - Tetanus Immunizations Tetanus Immunization: Unknown - Past Medical History & Family History Past Medical History?: Yes - Past Social History Smoking Status: Former Smoker Alcohol: Other (former) Drugs: Denies Home Situation {Lives}: With Family - CARDIAC Hx Hypertension: Yes - PULMONARY Hx Respiratory Disorders: No - NEUROLOGICAL Hx Neurological Disorder: No - HEENT Hx HEENT Problems: No - RENAL Hx Chronic Kidney Disease: No - ENDOCRINE/METABOLIC Hx Endocrine Disorders: No - HEMATOLOGICAL/ONCOLOGICAL Hx Blood Disorders: Yes Hx Cancer: Yes (Esophagus) Other/Comment: ESOPHAGEAL CA, DYSPHAGIA, DYSPEPSIA - INTEGUMENTARY Hx Dermatological Problems: No - MUSCULOSKELETAL/RHEUMATOLOGICAL Hx Musculoskeletal Disorders: Yes (VITAMIN D DEFICIENCY) Hx Back Pain: Yes Hx Falls: No Hx Osteoarthritis: Yes - GASTROINTESTINAL Hx Gastrointestinal Disorders: Yes HX Swallowing Problems: Yes Other/Comment: DYSPEPSIA, ESOPHAGEAL CA - GENITOURINARY/GYNECOLOGICAL Hx Genitourinary Disorders: Yes (ERECTILE DYSFUNCTION) - PSYCHIATRIC Hx Substance Use: No - SURGICAL HISTORY Hx Surgeries: Yes Other/Comment: Peg placement to be done 01/03/2017 - ANESTHESIA Hx Anesthesia: Yes Hx Anesthesia Reactions: No Hx Malignant Hyperthermia: No Meds Allergies/Adverse Reactions: Allergies Allergy/AdvReac Type Severity Reaction Status Date / Time No Known Allergies Allergy Verified 03/12/17 14:30 - Medications Medications: Current Medications Docusate Sodium (Colace) 100 mg PO BID [facility] Last Admin: 03/14/17 17:33 Dose: 100 mg Famotidine (Pepcid) 20 mg PEG BID [facility] Last Admin: 03/14/17 17:33 Dose: 20 mg Piperacillin Sod/Tazobactam Sod (Zosyn 3.375 Gm Iv Premix) 3.375 gm in 50 mls @ 100 mls/hr IVPB Q6H [facility] Last Admin: 03/14/17 13:33 Dose: 100 mls/hr Vancomycin/Sodium Chloride (Vancomycin 1 Gm/Ns 200 Ml) 1 gm in 200 mls @ 133 mls/hr IVPB Q24H [facility] Stop: 03/17/17 21:01 Last Admin: 03/13/17 21:00 Dose: 133 mls/hr Sodium Chloride (Sodium Chloride 0.9%) 1,000 mls @ 150 mls/hr IV .Q6H40M [facility] Last Admin: 03/14/17 17:31 Dose: 150 mls/hr Ondansetron HCl (Zofran Inj) 4 mg IVP Q6 PRN PRN Reason: Nausea/Vomiting Polyethylene Glycol (Miralax) 17 gm PO DAILY [facility] Last Admin: 03/14/17 09:16 Dose: 17 gm Results - Vital Signs Recent Vital Signs: Last Vital Signs Temp 98.2 F 03/14/17 15:00 Pulse 59 L 03/14/17 15:05 Resp 20 03/14/17 15:00 BP 96/52 L 03/14/17 15:00 Pulse Ox 96 03/14/17 15:00 - Labs Result Diagrams: 03/14/17 07:10 03/14/17 07:10 Labs: Laboratory Results - last 24 hr 03/14/17 03/14/17 03/14/17 07:10 07:10 10:01 WBC 3.1 L RBC 3.02 L Hgb 9.1 L Hct 26.2 L MCV 86.6 MCH 30.2 MCHC 34.8 RDW 15.3 H Plt Count 229 MPV 8.8 Neut % (Auto) 60.8 Lymph % (Auto) 18.3 L [place] % (Auto) 16.5 H Eos % (Auto) 2.0 Baso % (Auto) 2.4 H Neut # 1.9 Lymph # 0.6 L [place] # 0.5 Eos # 0.1 Baso # 0.1 Sodium 132 Potassium 3.4 L Chloride 106 Carbon Dioxide 24 Anion Gap 5 L BUN 11 Creatinine 0.7 L Est GFR ( Amer) > 60 Est GFR (Non-Af Amer) > 60 Random Glucose 88 Hemoglobin A1c 6.7 H Calcium 7.7 L Phosphorus 2.9 Magnesium 1.8 Total Bilirubin 0.8 AST 17 ALT 28 Alkaline Phosphatase 43 Total Creatine Kinase CK-MB (Mass) Troponin I NT-Pro-B Natriuret Pep 422 Total Protein 5.1 L Albumin 2.4 L Globulin 2.7 Albumin/Globulin Ratio 0.9 L 03/14/17 11:27 WBC RBC Hgb Hct MCV MCH MCHC RDW Plt Count MPV Neut % (Auto) Lymph % (Auto) [place] % (Auto) Eos % (Auto) Baso % (Auto) Neut # Lymph # [place] # Eos # Baso # Sodium Potassium Chloride Carbon Dioxide Anion Gap BUN Creatinine Est GFR ( Amer) Est GFR (Non-Af Amer) Random Glucose Hemoglobin A1c Calcium Phosphorus Magnesium Total Bilirubin AST ALT Alkaline Phosphatase Total Creatine Kinase 23 L CK-MB (Mass) < 0.22 Troponin I < 0.0120 NT-Pro-B Natriuret Pep Total Protein Albumin Globulin Albumin/Globulin Ratio Assessment & Plan - Assessment and Plan (Free Text) Assessment: (1) Weakness Assessment and Plan: possible etiology: * malnutrition * on active chemo/radiation * Likely a combination of malnutrition and chemo/radiation. Status: Acute (1) Hypotensive - YOLA negative -Fluid bolus given. Vitals improved afterwards. Will continue to monitor. Most likely non cardiac etiology (3) Dehydration Assessment and Plan: Started * Continue NS@125mls/hr Status: Acute (4) Malnutrition Assessment and Plan: malnutrition, severe * Tube feedings changes to Jevity 1.5. Increased to 30 cc/hr with a goal of 60. * Clinical Science Liaison referral appreciated * calorie count Status: Acute (5) GI bleed Assessment and Plan: GI consulted, Dr. [facility] (patient's GI before). Rec's appreciated. * Stool occult positive (performed by ED physician) * Continue Protonix 40mg IV Q12h * No chemical anticoagulation, nsaids, or asa Status: Acute (6) Nausea & vomiting Assessment and Plan: Continue Zofran 4mg IV Q6h PRN Status: Acute (7) Esophageal cancer Assessment and Plan: History of esophageal cancer, stage 2 * On active chemo/radiation * Oncology consulted, Dr Adrian Stein, help appreciated (patient see as outpatient) Status: Acute (8) Bandemia Assessment and Plan: Bandemia (4 at admission) * Afebrile, WBC within normal limits * Influenza negative * Strep pneumo: f/u results * Mycoplasma: f/u results * Legionella: f/u result * Blood cx(-) x 24 hours * Urine cx(-) * Continue vanco 1gm IV daily (03/12/17) * Continue zosyn 3.375gm IV Q6h (03/12/17) Status: Acute (9) Change in stool Assessment and Plan: Change in stool between constipation and diarrhea * Ova and parasite: f/u results * C. Diff: f/u results * Stool culture: f/u results * Stool leukocytes: f/u results Status: Acute (10) Electrolyte Imbalance Repleted. Will monitor with serial CMP's. (11) Prophylactic measure Assessment and Plan: * Protonix 40mg IV Q12h * Chemical anticoagulation contraindicated Status: Acute
[2017-03-14] MEDS: Vancomycin 1 gm/NS 200 ml 1 GM/200 ML BAG IVPB SCH (21:40)
[2017-03-15] MEDS: Sodium Chloride 0.9% 1,000 ML IV SCH ×2 (02:56→10:11)
[2017-03-15] MEDS: Piperacill/Tazo 3.375gm in Dex 3.375 GM/50 ML BAG IVPB SCH ×3 (02:57→13:55)
[2017-03-15 07:45] LABS: BASO # 0.1 K/uL (0.0-0.2); BASO % 2.1 % (0.0-2.0); EOS # 0.1 K/uL (0.0-0.7); HEMOGLOBIN 8.2 g/dL (12.0-18.0); LYMPH # 0.5 K/uL (1.0-4.3); LYMPH % 14.8 % (20.0-40.0); MEAN CELL VOLUME 86.4 fL (80.0-94.0); MEAN CORPUSCULAR HGB CONC 34.8 g/dL (33.0-37.0); MEAN PLATELET VOLUME 8.9 fL (7.2-11.7); MONO # 0.6 K/uL (0.0-0.8); MONO % 17.7 % (0.0-10.0); NEUT # 2.3 K/uL (1.8-7.0); NEUT % 63.4 % (50.0-75.0); RBC 2.74 Mil/uL (4.40-5.90); RED CELL DISTRIBUTION WIDTH 16.1 % (11.5-14.5); WHITE BLOOD COUNT 3.7 K/uL (4.8-10.8)
[2017-03-15 08:27] VITALS: BP 87/52; PULSE 51; TEMP 98.2; O2SAT 98
[2017-03-15 08:32] LABS: MAGNESIUM 1.6 mg/dL (1.6-2.3)
[2017-03-15 09:07] LABS: ALB/GLOB RATIO 0.8 (1.0-2.1); ALBUMIN 2.1 g/dL (3.5-5.0); ALT/SGPT 26 U/L (21-72); AST/SGOT 21 U/L (17-59); BLOOD UREA NITROGEN 6 mg/dL (9-20); CALCIUM 7.3 mg/dl (8.6-10.4); GFR AFRICAN-AMERICAN > 60; GFR NON-AFRICAN AMERICAN > 60
[2017-03-15] MEDS: POLYETHYLENE GLYCOL 3350 17 GM/Dose PACKET PO SCH (09:45)
--- NOTE | 2017-03-15 10:55 | CARD ---
APPROVED REPORT EKG Measurement Heart [id number] <Conclusion> Sinus bradycardia with short MO Otherwise normal ECG
--- NOTE | 2017-03-15 18:20 | CP.PCM.DIS ---
Provider - Provider Date of Admission: 03/12/17 16:55 Attending physician: Paige Amin DO Primary care physician: PMD: Dr. Olmos Consults: GI: Dr. Flynn Oncology: Dr. Stein Cardiology: Dr. Dockery Time Spent in preparation of Discharge (in minutes): 45 Hospital Course - Lab Results Lab Results: Micro Results 03/12/17 16:15 Blood-Venous Blood Culture - Preliminary NO GROWTH AFTER 48 HOURS 03/12/17 15:45 Blood-Venous Blood Culture - Preliminary NO GROWTH AFTER 48 HOURS 03/12/17 16:26 Urine,Clean Catch Urine Culture - Final No Growth (<1,000 CFU/ML) Most Recent Lab Values WBC 3.7 K/uL (4.8-10.8) L 03/15/17 07:22 RBC 2.74 Mil/uL (4.40-5.90) L 03/15/17 07:22 Hgb 8.2 g/dL (12.0-18.0) L 03/15/17 07:22 Hct 23.6 % (35.0-51.0) L 03/15/17 07:22 MCV 86.4 fL (80.0-94.0) 03/15/17 07:22 MCH 30.0 pg (27.0-31.0) 03/15/17 07:22 MCHC 34.8 g/dL (33.0-37.0) 03/15/17 07:22 RDW 16.1 % (11.5-14.5) H 03/15/17 07:22 Plt Count 211 K/uL (130-400) 03/15/17 07:22 MPV 8.9 fL (7.2-11.7) 03/15/17 07:22 Neut % (Auto) 63.4 % (50.0-75.0) 03/15/17 07:22 Lymph % (Auto) 14.8 % (20.0-40.0) L 03/15/17 07:22 [place] % (Auto) 17.7 % (0.0-10.0) H 03/15/17 07:22 Eos % (Auto) 2.0 % (0.0-4.0) 03/15/17 07:22 Baso % (Auto) 2.1 % (0.0-2.0) H 03/15/17 07:22 Neut # 2.3 K/uL (1.8-7.0) 03/15/17 07:22 Lymph # 0.5 K/uL (1.0-4.3) L 03/15/17 07:22 [place] # 0.6 K/uL (0.0-0.8) 03/15/17 07:22 Eos # 0.1 K/uL (0.0-0.7) 03/15/17 07:22 Baso # 0.1 K/uL (0.0-0.2) 03/15/17 07:22 Neutrophils % (Manual) 78 % (50-75) H 03/12/17 15:54 Band Neutrophils % 4 % (0-2) H 03/12/17 15:54 Lymphocytes % (Manual) 10 % (20-40) L 03/12/17 15:54 Monocytes % (Manual) 6 % (0-10) 03/12/17 15:54 Eosinophils % (Manual) 1 % (0-4) 03/12/17 15:54 Basophils % (Manual) 1 % (0-2) 03/12/17 15:54 Platelet Estimate Normal (NORMAL) 03/12/17 15:54 Large Platelets Present 03/12/17 15:54 Microcytosis (manual) Slight 03/12/17 15:54 Ovalocytes Slight 03/12/17 15:54 PT 13.2 SECONDS (9.7-12.2) H 03/12/17 15:54 INR 1.2 03/12/17 15:54 APTT 30 SECONDS (21-34) 03/12/17 15:54 Sodium 135 mmol/L (132-148) 03/15/17 07:22 Potassium 3.4 mmol/L (3.6-5.2) L 03/15/17 07:22 Chloride 107 mmol/L (98-107) 03/15/17 07:22 Carbon Dioxide 25 mmol/L (22-30) 03/15/17 07:22 Anion Gap 7 (10-20) L 03/15/17 07:22 BUN 6 mg/dL (9-20) L 03/15/17 07:22 Creatinine 0.8 mg/dL (0.8-1.5) 03/15/17 07:22 Est GFR ( Amer) > 60 03/15/17 07:22 Est GFR (Non-Af Amer) > 60 03/15/17 07:22 POC Glucose (mg/dL) 91 mg/dL (65-110) 03/13/17 06:22 Random Glucose 106 mg/dL (75-110) 03/15/17 07:22 Hemoglobin A1c 6.7 % (4.2-6.5) H 03/14/17 10:01 Calcium 7.3 mg/dl (8.6-10.4) L 03/15/17 07:22 Phosphorus 2.8 mg/dL (2.5-4.5) 03/15/17 08:04 Magnesium 1.6 mg/dL (1.6-2.3) 03/15/17 08:04 Total Bilirubin 0.4 mg/dL (0.2-1.3) 03/15/17 07:22 AST 21 U/L (17-59) 03/15/17 07:22 ALT 26 U/L (21-72) 03/15/17 07:22 Alkaline Phosphatase 41 U/L (38-126) 03/15/17 07:22 Total Creatine Kinase 23 U/L (55-170) L 03/14/17 11:27 CK-MB (Mass) < 0.22 ng/mL (0.0-3.38) 03/14/17 11:27 Troponin I < 0.0120 ng/mL (0.00-0.120) 03/14/17 11:27 NT-Pro-B Natriuret Pep 422 pg/mL (0-900) 03/14/17 07:10 Total Protein 4.5 g/dL (6.3-8.3) L 03/15/17 07:22 Albumin 2.1 g/dL (3.5-5.0) L 03/15/17 07:22 Globulin 2.5 gm/dL (2.2-3.9) 03/15/17 07:22 Albumin/Globulin Ratio 0.8 (1.0-2.1) L 03/15/17 07:22 Lipase 60 U/L (23-300) 03/12/17 15:54 Procalcitonin 0.07 NG/ML (0.19-0.49) L 03/12/17 17:08 TSH 3rd Generation 1.01 mIU/L (0.46-4.68) 03/12/17 15:54 Urine Color Rukhsana (YELLOW) 03/12/17 15:59 Urine Clarity Clear (Clear) 03/12/17 15:59 Urine pH 5.0 (5.0-8.0) 03/12/17 15:59 Ur Specific [place] 1.030 (1.003-1.030) 03/12/17 15:59 Urine Protein 1+ mg/dL (NEGATIVE) H 03/12/17 15:59 Urine Glucose (UA) Normal mg/dL (Normal) 03/12/17 15:59 Urine Ketones Negative mg/dL (NEGATIVE) 03/12/17 15:59 Urine Blood Negative (NEGATIVE) 03/12/17 15:59 Urine Nitrate Negative (NEGATIVE) 03/12/17 15:59 Urine Bilirubin Negative (NEGATIVE) 03/12/17 15:59 Urine Urobilinogen 2.0 mg/dL (0.2-1.0) 03/12/17 15:59 Ur Leukocyte Esterase Neg Amrik/uL (Negative) 03/12/17 15:59 Urine WBC (Auto) 2 /hpf (0-5) 03/12/17 15:59 Urine RBC (Auto) 1 /hpf (0-3) 03/12/17 15:59 Ur Squamous Epith Cells 1 /hpf (0-5) 03/12/17 15:59 Ur Transition Epith Cell < 1 /hpf (0-3) 03/12/17 15:59 Urine Bacteria Rare (<OCC) 03/12/17 15:59 Influenza Typ A,B (EIA) Negative for flu a/b (NEGATIVE) 03/12/17 18:14 Blood Type O POSITIVE 03/12/17 15:54 Antibody Screen Negative 03/12/17 15:54 - Hospital Course Hospital Course: PMD: Dr. Olmos Consults: GI (Dr. Flynn), Oncology (Dr. Stein), Cardiology (Dr. Dockery) PRINCIPAL DISCHARGE DIAGNOSES: Weakness Hypotensive Dehydration Malnutrition GI Bleed Esophageal cancer Bandemia Electrolyte imbalance CC: Weakness and blood in the stool HISTORY OF PRESENT ILLNESS: HPI: Patient is a 71 year old male with a past medical history of esophageal cancer, stage II, and arthritis, who was sent by his pmd for weakness and blood in stool. Patient's friend, Heather, was at bedside and contributed to the patient 's history. Patient has been feeling weak for the past two weeks since his last session of chemo and radiation. He states he has been constipated and straining for the past 3 days and noticed blood streaking, but since this morning, he noticed a larger amount of blood in the toilet. He also complains of nausea, vomiting, and diarrhea starting this morning. As per the friend, the patient has been feeling weak ever since starting his tube feeding in November. The patient is supposed to use 6 bottles of ensure daily, but sometimes uses only 1- 2 bottles. He takes nothing by mouth. The patient was diagnosed with esophageal cancer, had the PEG tube and portacath placed, and started chemotherapy and radiation in November 2016. He gets chemo weekly, and radiation daily; as per the patient, he was supposed to finish radiation next week. Due to the patient' s symptoms of weakness, the patient has not had chemo or radiation for two weeks. Patient currently reports feeling weak, sore throat, dizzy, nausea, vomiting (earlier) and diarrhea. He also complains of tenderness around the PEG tube site with movement or bending down. PMD: Dr. Olmos Onc: Dr. 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 SUMMARY OF COURSE: Yvan Mccrary is a 71-year-old male who was admitted to [facility] on 03/12/2017-03/15/[address] Olmos sent him for evaluation of weakness and blood in stool. His medical history is notable for esophageal cancer stage II, and arthritis. While at the hospital, he was given fluids, and had diagnostic lab tests and imaging done to evaluate his weakness, hypotension, dehydration, malnutrition and GI bleed. GI, Oncology and Cardiology were consulted. Imaging study results are stated below. GI consult, Dr. Flynn said that the generalized weakness and hypotension is likely due to malnourishment, and to continue tube feeding. No further GI intervention is required at this time. They also recommended an outpatient colonoscopy once his nutrition status improved.Oncology consult, Dr. Stein, stressed the importance of taking the PEG tube feedings and that for now chemo and radiation therapy will be on hold. Cardiology consult, Dr. Dockery, said that no cardiac intervention is indicated at this time. He is to follw up with Dr. Flynn on 03/28/17 to discuss options regarding colonoscopy. Patient is given a script and is recommended for outpatient PT. His insurance has approved [employer]. Mr. Fairbanks daughter was explained the importance of nutrition with Ulmart. Called the Daughter Zora and spoke at length with her the importance of getting the 6 cans of Ulmart everyday. Imaging: Chest X-Ray 03/12: No stable position of right Port-A-Cath. Fibrotic changes in the right upper lobe. No active pulmonary disease. ECG 03/12: Normal sinus rhythm. Normal ECG. ECG 03/14: Sinus bradycardia with short OH. Otherwise normal ECG. DISCHARGE MEDICATIONS: Docusate [Colace] 100 mg PEG BID Famotidine [Pepsid] 20 mg PEG BID Ensure 113 gm PEG daily Discharge Exam - Head Exam Head Exam: ATRAUMATIC, NORMAL INSPECTION, NORMOCEPHALIC - Eye Exam Eye Exam: EOMI, Normal appearance, PERRL. absent: Periorbital tenderness Pupil Exam: NORMAL ACCOMODATION, PERRL. absent: Irregular, Unequal - ENT Exam ENT Exam: Mucous Membranes Moist, Normal Exam, Normal Oropharynx - Respiratory Exam Respiratory Exam: Clear to PA & Lateral, NORMAL BREATHING PATTERN, UNREMARKABLE. absent: Decreased Breath Sounds, Rales, Rhonchi - Cardiovascular Exam Cardiovascular Exam: REGULAR RHYTHM, RRR, +S1, +S2. absent: Gallop, Rubs - GI/Abdominal Exam GI & Abdominal Exam: Normal Bowel Sounds, Soft, Unremarkable. absent: Hypoactive Bowel Sounds, Organomegaly Additional comments: PEG tube placed. No discharge or erythema present. - Extremities Exam Extremities exam: full ROM - Back Exam Back exam: NORMAL INSPECTION. absent: CVA tenderness (L), CVA tenderness (R), paraspinal tenderness - Neurological Exam Neurological exam: Alert, CN II-XII Intact, Normal Gait, Oriented x3 - Psychiatric Exam Psychiatric exam: Normal Affect, Normal Mood - Skin Skin Exam: Dry, Intact Discharge Plan - Discharge Medications Prescriptions: Docusate [Colace] 100 mg PEG BID #60 cap Famotidine [Pepcid] 20 mg PEG BID #60 tab - Follow Up Plan Condition: FAIR Disposition: HOME/ ROUTINE Instructions: Famotidine (By mouth), Laxative, Stool Softeners (By mouth), How to Use and Care for Your PEG Tube (DC), Weakness (GEN) Additional Instructions: Please follow up with Dr Flynn in the office [address], on Mar 28 at 3 pm. Patient is advised to follow up with outpatient Physical Therapy (Perscription provided upon discharge). Patient is advised to follow up with Dr. Flynn on March 28 to schedule outpatient Colonoscopy. Patient is advised to follow up with PMD within one week of discharge. Patient advised to follow up with Dr. Stein. Discussed with patient's daugther the importance of adhering to the 6 cans of Jevity per day to improve nutrition status. Patient advised to return of emergency department for any new or worsening symptoms. Discharged Medications 1. Jevity 2. Colace 100mg PEG, BID, #60 3.Pepcid 20mg PEG, BID, #60 Referrals: Jagdish Flynn MD [Staff Provider] -
== END 2017-03-15 16:36 | disposition home or self-care (01) | DRG 374 ==
LOC: C.ER 14:07 → C.9E 16:55 → C.6T 20:16
PROVIDERS: ADMIT Hospitalist; ATTEND Hospitalist
DX: C15.9 Malignant neoplasm of esophagus, unspecified (principal); E43 Unspecified severe protein-calorie malnutrition; E86.0 Dehydration; D64.9 Anemia, unspecified; E83.42 Hypomagnesemia; R13.10 Dysphagia, unspecified; Z93.1 Gastrostomy status; E87.6 Hypokalemia; I10 Essential (primary) hypertension; K59.00 Constipation, unspecified; Z87.891 Personal history of nicotine dependence; D72.825 Bandemia; T45.1X5A Adverse effect of antineoplastic and immunosuppressive drugs, initial encounter

== ENCOUNTER 2017-04-04 07:36 | Day surgery (SDC) | payer MEDICARE ==
[2017-04-04 08:16] VITALS: BMI 18.2
[2017-04-04] MEDS ORDERED: Lidocaine Hydrochloride 5 ML INJ ONE (10:42)
[2017-04-04] MEDS ORDERED: Propofol 10 mg/ml Inj (20 ML) ONE (10:42)
[2017-04-04] MEDS ORDERED: Lactated Ringer's 1,000 ML IV ONE (10:45)
[2017-04-04 13:57] VITALS: TEMP 96.8
[2017-04-04 14:33] VITALS: BP 100/61; PULSE 53; RESP 15; O2SAT 99
== END 2017-04-04 12:45 | disposition home or self-care (01) ==
LOC: C.ENDO 07:36
PROVIDERS: ATTEND Internal Medicine Gastroenterology
DX: Z12.11 Encounter for screening for malignant neoplasm of colon (principal); K57.30 Diverticulosis of large intestine without perforation or abscess without bleeding; K64.1 Second degree hemorrhoids; K62.89 Other specified diseases of anus and rectum
CPT/HCPCS: G0121; J2704; J7120

== ENCOUNTER 2017-04-08 10:08 | Day surgery (SDC) | payer MEDICARE ==
[2017-04-08] MEDS ORDERED: Midazolam 2 MG/2 ML VIAL ONE (11:14)
[2017-04-08] MEDS ORDERED: Propofol 10 mg/ml Inj (20 ML) ONE (11:14)
[2017-04-08] MEDS ORDERED: Lactated Ringer's 500 ML IV SCH (11:30)
[2017-04-08 12:15] VITALS: RESP 12; TEMP 97.3
[2017-04-08 12:41] VITALS: O2SAT 100
[2017-04-08 13:44] VITALS: BP 100/47; PULSE 47
== END 2017-04-08 13:43 | disposition home or self-care (01) ==
LOC: C.ENDO 10:08
PROVIDERS: ATTEND Internal Medicine
DX: C15.9 Malignant neoplasm of esophagus, unspecified (principal); K22.10 Ulcer of esophagus without bleeding; Z93.1 Gastrostomy status; R85.89 Other abnormal findings in specimens from digestive organs and abdominal cavity
CPT/HCPCS: 43259; 88305; 88312; J2250; J2704; J7120

== ENCOUNTER 2017-09-18 09:23 | Day surgery (SDC) | payer MEDICARE ==
[2017-09-18] MEDS ORDERED: Lactated Ringer's 500 ML IV ONE ×2 (12:33)
--- NOTE | 2017-09-18 12:36 | CP.SDSHP ---
Same Day Surgery H & P - History Proposed Procedure: EGD Pre-Op Diagnosis: history of esophageal cancer - Allergies Allergies: Allergies No Known Allergies Allergy (Verified 04/08/17 10:39) - Physical Exam General Appearance: NAD Vital Signs: Vital Signs 09/18/17 10:33 Temperature 99 F Pulse Rate 51 L Respiratory 20 Rate Blood Pressure 115/48 L O2 Sat by Pulse 98 Oximetry Mental Status: Alert & Oriented x3 Neuro: WNL Heart: WNL Lungs: WNL GI: WNL - {Optional Preform as Required} Abdomen: WNL - Impression Pt. Evaluated Today:Candidate for Anesthesia & Procedure: Yes - Date & Time Date: 09/18/17 Time: 12:36 Short Stay Discharge - Short Stay Discharge Admitting Diagnosis/Reason for Visit: PERSONAL HISTORY OF MALIGNANT NEOPLASM OF ESOPHAGU Disposition: HOME/ ROUTINE
[2017-09-18] MEDS ORDERED: Propofol 10 mg/ml Inj (20 ML) ONE (12:40)
[2017-09-18 13:13] VITALS: TEMP 98.6
[2017-09-18 13:33] VITALS: O2SAT 100
[2017-09-18 13:44] VITALS: BP 109/53; PULSE 42; RESP 12
== END 2017-09-18 14:11 | disposition home or self-care (01) ==
LOC: C.ENDO 09:23
PROVIDERS: ATTEND Internal Medicine Gastroenterology
DX: C15.4 Malignant neoplasm of middle third of esophagus (principal); K20.9 Esophagitis, unspecified; K29.70 Gastritis, unspecified, without bleeding
CPT/HCPCS: 43239; 88305; J2704; J7120

== ENCOUNTER 2017-10-14 07:53 | Day surgery (SDC) | payer MEDICARE, OTHER ==
[2017-10-02 08:08] VITALS: BMI 22.6
[2017-10-14] MEDS ORDERED: Bupivacaine 0.25% 20 ML INJ IJ ONE (10:23)
[2017-10-14] MEDS ORDERED: ceFAZolin IV 1 gm in Dextrose 1 GM/50 ML BAG IVPB ONE (10:23)
[2017-10-14] MEDS ORDERED: Lidocaine/Epinephrine 1% 1:100000 10 ML IJ ONE (10:24)
[2017-10-14] MEDS ORDERED: Propofol 10 mg/ml Inj (20 ML) ONE (11:08)
[2017-10-14] MEDS ORDERED: Lidocaine Hydrochloride 5 ML INJ ONE (11:09)
[2017-10-14] MEDS ORDERED: HYDROmorphone 0.5 mg/0.5 ml ISec IVP PRN (11:39)
--- NOTE | 2017-10-14 12:25 | PCM.SURG1 ---
Surgeon's Initial Post Op Note - Surgeon's Notes Surgeon: Corrie Echols MD [employer] Worker: None Type of Anesthesia: Moderate Sedation{RN} Pre-Operative Diagnosis: Esophageal cancer s/p Chemotherapy Operative Findings: Portacath in right IJ Post-Operative Diagnosis: Esophageal cancer Operation Performed: Portacath removal Specimen/Specimens Removed: Port with catheter Estimated Blood Loss: EBL {In ML}: 10 Blood Products Given: N/A Drains Used: No Drains Post-Op Condition: Good Date of Surgery/Procedure: 10/14/17 Time of Surgery/Procedure: 12:25
[2017-10-14 12:45] VITALS: O2SAT 98
[2017-10-14 13:11] VITALS: RESP 16
[2017-10-14 13:22] VITALS: BP 115/64; PULSE 53; TEMP 98.1
--- NOTE | 2017-10-17 01:35 | OP ---
Copied To: Jeffrey Echols MD Attending MD: Jeffrey Echols MD PROCEDURE DATE: 10/14/2017 PREOPERATIVE DIAGNOSIS: Esophageal cancer, status post chemotherapy. POSTOPERATIVE DIAGNOSIS: Esophageal cancer, status post chemotherapy. PROCEDURES DONE: 1. Port-A-Cath removal. 2. Capsulectomy. SURGEON: Jeffrey Echols MD CHIEF OF HOSPITAL MEDICINE: None. ANESTHESIA: Local anesthesia plus sedation. ESTIMATED BLOOD LOSS: Around 10 mL. DRAINS: None. PATHOLOGY: The Port-A-Cath with capsule was sent to the pathology. COMPLICATIONS: None. INTRAOPERATIVE FINDINGS: The patient had right IJ double-lumen Port-A-Cath with very thick capsule. DESCRIPTION OF PROCEDURE: On intraoperative steps, this is a 72-year-old male, who was diagnosed with esophageal cancer, and after chemotherapy and after complete resolution of the esophageal cancer, the patient was sent by oncologist for Port-A-Cath removal. The patient was consented, brought to the OR and placed supine on the operating table. After induction of the anesthesia, the left chest and the neck were prepped and draped in the usual sterile fashion. A local anesthesia was injected surrounding the port and incision was made. Upper and lower flap was created. The port was completely removed. A [id number] suture was placed at the catheter entry site and now the thick capsule on the floor as well as on the wall that was excised to prevent the seroma, and the capsule was sent off the table for pathology. The wound was closed in two layers, subcu with the 2-0 Vicryl and skin with the 4-0 Monocryl. Dry sterile dressing was applied. The patient tolerated the procedure well. Count of instruments and gauze was correct. There was no apparent complication. The patient was reversed from sedation and sent to the postanesthesia care unit in stable condition. Jeffrey Echols MD
== END 2017-10-14 13:15 | disposition home or self-care (01) ==
LOC: C.SDS 07:53
PROVIDERS: ATTEND Surgery Surgical Critical Care
DX: Z45.2 Encounter for adjustment and management of vascular access device (principal); Z85.01 Personal history of malignant neoplasm of esophagus; Z92.21 Personal history of antineoplastic chemotherapy
CPT/HCPCS: 36590; 88304; J0690; J2704

== ENCOUNTER 2018-06-12 09:07 | Day surgery (SDC) | payer MEDICARE ==
[2018-06-12 10:02] VITALS: BMI 20.5
[2018-06-12] MEDS ORDERED: Lactated Ringer's 500 ML IV SCH (11:45)
[2018-06-12] MEDS ORDERED: Lactated Ringer's 500 ML IV ONE (11:45)
[2018-06-12] MEDS ORDERED: Propofol 10 mg/ml Inj (20 ML) ONE (11:50)
[2018-06-12 11:52] VITALS: O2SAT 100
[2018-06-12] MEDS ORDERED: Atropine 0.4 mg/ml Inj (1 mL) ONE (11:54)
[2018-06-12 12:45] VITALS: TEMP 99.1
[2018-06-12 14:55] VITALS: BP 120/50; PULSE 59; RESP 19
== END 2018-06-12 14:30 | disposition home or self-care (01) ==
LOC: C.ENDO 09:07
PROVIDERS: ATTEND Internal Medicine Gastroenterology
DX: C15.4 Malignant neoplasm of middle third of esophagus (principal); K29.70 Gastritis, unspecified, without bleeding
CPT/HCPCS: 43239; 88305; 88312; J2704; J7120